=== PATIENT | male | born 1955 | race Caucasian/White ===

== ENCOUNTER 2017-01-15 14:54 | Emergency (ER) | payer OTHER ==
[2017-01-15 15:00] VITALS: TEMP 98.8
[2017-01-15] MEDS ORDERED: morphine CARPU-JECT 2 MG/1 ML DISP.SYRIN IVPUSH ONE (15:02)
[2017-01-15] MEDS ORDERED: SODIUM CHLORIDE 0.9% 500 ML INFUS.BAG IV ONE (15:02)
[2017-01-15] MEDS ORDERED: FAMOTIDINE 20 MG/50 ML IVPB 50 ML IVPB ONE ×2 (15:03→16:13)
[2017-01-15] MEDS ORDERED: ACETAMINOPHEN 1000 MG/100 ML VIAL (NON FORMULARY) IVPB ONE (15:04)
--- NOTE | 2017-01-15 15:04 | PDOC ---
ED Treatment Course - LABORATORY CBC & Chemistry Diagram: 01/15/17 15:15 01/15/17 15:15 Medical Decision Making - Medical Decision Making 01/15/17 15:05 Rapid Medical Triage: Pt comes with fever and flu like symptoms. No eating x days. He is dehydrated and weak. Last Advil was 6 hours ago and patient seems to be feverish at this time. Flu swab sent. CXR ordered- pt is a long time smoker. Pt has clear lung chavez, and abdomen is soft and nontender; no flank pain with percussion. His pain is in his joints and "all over" Pt will have EKG ordered, as he has high BP in the ER, and as he is 61 years old. Basic labs, IV, Normal Saline, Ofirmev (since he is vomiting), morphine for pain. *DC/Admit/Observation/Transfer Diagnosis at time of Disposition: Influenza - Discharge Dispostion Disposition: HOME Condition at time of disposition: Stable - Prescriptions Prescriptions: Oseltamivir Phosphate [Tamiflu -] 75 mg PO BID #10 capsule Oseltamivir Phosphate [Tamiflu -] 75 mg PO BID #10 capsule - Patient Instructions Printed Discharge Instructions: DI for Influenza -- Adult, DI for H1N1 Influenza -- Adult Additional Instructions: please parts picker the TAMIFLU prescription at [facility]
[2017-01-15] MEDS ORDERED: ACETAMINOPHEN INJECTION 100 ML IVPB ONE (16:13)
[2017-01-15] MEDS ORDERED: morphine CARPU-JECT 2 MG/1 ML DISP.SYRIN ONE (16:13)
--- NOTE | 2017-01-15 16:15 | PDOC ---
[id number] No Limitations - History of Present Illness Initial Comments: 01/15/17 16:34 The patient is a 61 year old male with no significant past medical history who presents to the emergency department with fever, chills, decreased appetite and body aches for the last 3 days. The patient states he has been unable to eat or drink for the last 3 days. The patient reports that he felt feverish however he did not take his temperature. He reports associated chills. The patient reports associated body aches and joint pain. He also reports associated nausea and vomiting that started today. He denies any sick contacts. He denies cough, chest pain, or SOB. He denies palpitations. He took Advil for his symptoms ~6 hours ago. <Nuha Conley - Last Filed: 01/15/17 16:55> <Amara Peterson - Last Filed: 01/15/17 19:25> <Jeimy Morfin - Last Filed: 01/16/17 07:51> - General Chief Complaint: Respiratory Stated Complaint: FEVER Time Seen by Provider: 01/15/17 14:56 Past History <Nuha Conley - Last Filed: 01/15/17 16:55> <Amara Peetrson - Last Filed: 01/15/17 19:25> - Past Medical History Other medical history: none - Psycho/Social/Smoking Cessation Hx Anxiety: No Suicidal Ideation: No Smoking History: Current every day smoker Have you smoked in the past 12 months: Yes Number of Cigarettes Smoked Daily: 20 Information on smoking cessation initiated: Yes 'Breaking Loose' booklet given: 01/15/17 Hx Alcohol Use: No Drug/Substance Use Hx: No Substance Use Type: None <Jeimy Morfin - Last Filed: 01/16/17 07:51> - Past Medical History Allergies/Adverse Reactions: Allergies Allergy/AdvReac Type Severity Reaction Status Date / Time No Known Allergies Allergy Verified 01/15/17 14:57 Home Medications: Ambulatory Orders Oseltamivir Phosphate [Tamiflu -] 75 mg PO BID #10 capsule 01/15/17 Oseltamivir Phosphate [Tamiflu -] 75 mg PO BID #10 capsule 01/15/17 Review of Systems - Review of Systems Able to Perform ROS?: Yes Comments:: 01/15/17 16:35 GENERAL/CONSTITUTIONAL: +Fever, +chills. No weakness. HEAD, EYES, EARS, NOSE AND THROAT: No change in vision. No ear pain or discharge. No sore throat. CARDIOVASCULAR: No chest pain or shortness of breath. RESPIRATORY: No cough, wheezing, or hemoptysis. GASTROINTESTINAL: +Nausea, +vomiting. No diarrhea or constipation. GENITOURINARY: No dysuria, frequency, or change in urination. MUSCULOSKELETAL: +Body aches, +joint pain. No muscle swelling or pain. No neck or back pain. SKIN: No rash NEUROLOGIC: No headache, vertigo, loss of consciousness, or change in strength/ sensation. ENDOCRINE: No increased thirst. No abnormal weight change. HEMATOLOGIC/LYMPHATIC: No anemia, easy bleeding, or history of blood clots. ALLERGIC/IMMUNOLOGIC: No hives or skin allergy. <Nuha Conley - Last Filed: 01/15/17 16:55> *Physical Exam - Vital Signs Last Vital Signs Temp Pulse Resp BP Pulse Ox 98.8 F 92 H 18 153/69 100 01/15/17 14:58 01/15/17 14:58 01/15/17 14:58 01/15/17 14:58 01/15/17 14:58 - Physical Exam Comments: 01/15/17 16:55 GENERAL: +Appears ill but non toxic. Awake, alert, and fully oriented, in no acute distress HEAD: No signs of trauma EYES: PERRLA, EOMI, sclera anicteric, conjunctiva clear ENT: Auricles normal inspection, hearing grossly normal, nares patent, oropharynx clear without exudates. Moist mucosa NECK: Normal ROM, supple, no lymphadenopathy, JVD, or masses LUNGS: Breath sounds equal, clear to auscultation bilaterally. No wheezes, and no crackles HEART: Regular rate and rhythm, normal S1 and S2, no murmurs, rubs or gallops ABDOMEN: Soft, nontender, normoactive bowel sounds. No guarding, no rebound. No masses EXTREMITIES: Normal range of motion, no edema. No clubbing or cyanosis. No cords, erythema, or tenderness NEUROLOGICAL: Cranial nerves II through XII grossly intact. Normal speech, normal gait SKIN: Warm, Dry, normal turgor, no rashes or lesions noted. <Nuha Conley - Last Filed: 01/15/17 16:55> - Vital Signs Last Vital Signs Temp Pulse Resp BP Pulse Ox 98.8 F 88 18 153/69 100 01/15/17 14:58 01/15/17 18:01 01/15/17 14:58 01/15/17 14:58 01/15/17 18:01 <Amara Peterson - Last Filed: 01/15/17 19:25> - Vital Signs Last Vital Signs Temp Pulse Resp BP Pulse Ox 98.8 F 92 H 18 153/69 100 01/15/17 14:58 01/15/17 14:58 01/15/17 14:58 01/15/17 14:58 01/15/17 14:58 <Jeimy Morfin - Last Filed: 01/16/17 07:51> Heart Score/ECG Review - ECG Impressions Comment:: EKG read 16:45- NSR 76 bpm, no acute ST/T changes <Jeimy Morfin - Last Filed: 01/16/17 07:51> ED Treatment Course - LABORATORY CBC & Chemistry Diagram: 01/15/17 15:15 01/15/17 15:15 - ADDITIONAL ORDERS Additional order review: 01/15/17 15:00 Influenza Types A,B Antigen (FADY) - Final Nasopharyngeal Swab - Final - Medications Given in the ED: ED Medications Discontinued Medications Generic Name Dose Route Start Last Admin Trade Name Daniel PRN Reason Stop Dose Admin Acetaminophen 1,000 mg 01/15/17 15:04 01/15/17 16:25 Ofirmev Injection - IVPB 01/15/17 15:05 1,000 mg ONCE ONE Administration Famotidine/Sodium Chloride 50 mls @ 100 mls/hr 01/15/17 15:03 01/15/17 16:24 Pepcid 20 Mg Premixed Ivpb - IVPB 01/15/17 15:32 100 mls/hr ONCE ONE Administration Morphine Sulfate 2 mg 01/15/17 15:02 01/15/17 16:24 Morphine Injection - IVPUSH 01/15/17 15:03 Not Given ONCE ONE Sodium Chloride 1,000 ml 01/15/17 15:02 01/15/17 16:24 Normal Saline - IV 01/15/17 15:03 1,000 ml ONCE ONE Administration <Nuha Conley - Last Filed: 01/15/17 16:55> - LABORATORY CBC & Chemistry Diagram: 01/15/17 15:15 01/15/17 15:15 - ADDITIONAL ORDERS Additional order review: Laboratory Results 01/15/17 01/15/17 16:57 15:15 Sodium 133 L Potassium 3.6 Chloride 96 L Carbon Dioxide 26 Anion Gap 11 BUN 12 Creatinine 0.9 Creat Clearance w eGFR > 60 Random Glucose 100 Calcium 8.5 Total Bilirubin 0.5 AST 31 ALT 22 Alkaline Phosphatase 75 Total Protein 7.3 Albumin 3.4 Urine Color Ltyellow Urine Appearance Clear Urine pH 8.0 Ur Specific [place] 1.012 Urine Protein 2+ H Urine Glucose (UA) Negative Urine Ketones 1+ H Urine Blood 1+ H Urine Nitrite Negative Urine Bilirubin Negative Urine Urobilinogen Negative Ur Leukocyte Esterase Negative 01/15/17 15:00 Influenza Types A,B Antigen (FADY) - Final Nasopharyngeal Swab - Final 01/15/17 15:15 RBC 5.70 H MCV 78.5 L MCHC 32.7 RDW 15.0 MPV 9.8 Neutrophils % 73.2 Lymphocytes % 15.9 Monocytes % 10.2 Eosinophils % 0.0 Basophils % 0.7 - Medications Given in the ED: ED Medications Discontinued Medications Generic Name Dose Route Start Last Admin Trade Name Lokeshq PRN Reason Stop Dose Admin Acetaminophen 1,000 mg 01/15/17 15:04 01/15/17 16:25 Ofirmev Injection - IVPB 01/15/17 15:05 1,000 mg ONCE ONE Administration Famotidine/Sodium Chloride 50 mls @ 100 mls/hr 01/15/17 15:03 01/15/17 16:24 Pepcid 20 Mg Premixed Ivpb - IVPB 01/15/17 15:32 100 mls/hr ONCE ONE Administration Morphine Sulfate 2 mg 01/15/17 15:02 01/15/17 16:24 Morphine Injection - IVPUSH 01/15/17 15:03 Not Given ONCE ONE Sodium Chloride 1,000 ml 01/15/17 15:02 01/15/17 16:24 Normal Saline - IV 01/15/17 15:03 1,000 ml ONCE ONE Administration <Amara Peterson - Last Filed: 01/15/17 19:25> - LABORATORY CBC & Chemistry Diagram: 01/15/17 15:15 01/15/17 15:15 - ADDITIONAL ORDERS Additional order review: 01/15/17 15:00 Influenza Types A,B Antigen (FADY) - Final Nasopharyngeal Swab - Final <Jeimy Morfin - Last Filed: 01/16/17 07:51> Medical Decision Making - Medical Decision Making 01/15/17 17:[address] Peterson. Tested positive for flu A. He has had symptoms for 3 days, tamiflu unlikely to help at this point. Currently receiving IV fluids, tylenol, pepcid. Reassess. Likely DC home. <Jeimy Morfin - Last Filed: 01/16/17 07:51> *DC/Admit/Observation/Transfer <Nuha Conley - Last Filed: 01/15/17 16:55> <Amara Peterson - Last Filed: 01/15/17 19:25> <Jeimy Morfin - Last Filed: 01/16/17 07:51> Diagnosis at time of Disposition: Influenza - Discharge Dispostion Disposition: HOME Condition at time of disposition: Stable - Prescriptions Prescriptions: Oseltamivir Phosphate [Tamiflu -] 75 mg PO BID #10 capsule Oseltamivir Phosphate [Tamiflu -] 75 mg PO BID #10 capsule - Patient Instructions Printed Discharge Instructions: DI for H1N1 Influenza -- Adult, DI for Influenza -- Adult Additional Instructions: please slate picker the TAMIFLU prescription at [facility]
[2017-01-15 16:31] LABS: BASOPHIL 0.7 % (0-2.0); MCH 25.6 pg (25.7-33.7); MCHC 32.7 g/dl (32.0-35.9); MEAN CELL VOLUME 78.5 fl (80-96); MEAN PLT VOLUME 9.8 fl (7.5-11.1); NEUTROPHILS 73.2 % (42.8-82.8); PLATELET COUNT 159 K/MM3 (134-434); WHITE BLOOD COUNT 6.1 K/mm3 (4.0-10.0)
[2017-01-15 17:03] LABS: ALBUMIN 3.4 g/dl (3.4-5.0); ALK PHOS 75 U/L (45-117); ANION GAP 11 (8-16); BILIRUBIN,TOTAL 0.5 mg/dL (0.2-1.0); CALCIUM 8.5 mg/dL (8.5-10.1); CO2 26 mmol/L (21-32); CREATININE 0.9 mg/dL (0.7-1.3); GLUCOSE,RANDOM 100 mg/dL (74-106); SGOT/AST 31 U/L (15-37); SGPT/ALT 22 U/L (12-78); TOT PROT 7.3 g/dl (6.4-8.2)
[2017-01-15 18:01] LABS: URINE APPEARANCE CLEAR; URINE BILIRUBIN NEGATIVE (NEGATIVE); URINE COLOR LTYELLOW; URINE GLUCOSE (UA) NEGATIVE (NEGATIVE); URINE KETONE 1+ (NEGATIVE); URINE LEUK ESTERASE NEGATIVE (NEGATIVE); URINE NITRITE NEGATIVE (NEGATIVE); URINE UROBILINOGEN NEGATIVE E.U./dl (0.2-1.0)
[2017-01-15 19:12] LABS: URINE BLOOD 1+ (NEGATIVE); URINE PROTEIN 2+ (NEGATIVE)
[2017-01-15 19:22] LABS: URINE RBC 18 /hpf (0-3); URINE WBC 2 /hpf (3-5)
[2017-01-15 20:05] VITALS: BP 155/65; PULSE 79
--- NOTE | 2017-01-16 13:49 | EKG ---
Test Reason : Blood Pressure : / mmHG Vent. Rate : 076 BPM Atrial Rate : 076 BPM P-R Int : 148 ms QRS Dur : 076 ms QT Int : 388 ms P-R-T Axes : 050 073 066 degrees QTc Int : 436 ms NORMAL SINUS RHYTHM POSSIBLE LEFT ATRIAL ENLARGEMENT BORDERLINE ECG WHEN COMPARED WITH ECG OF 04-SEP-2009 17:19, QUESTIONABLE CHANGE IN QRS AXIS Confirmed by SHASHI SANCHEZ, JACKY ([id number]) on 01/16/2017 1:49:18 PM Referred By: Confirmed By:JACKY DANIELLE MD
== END 2017-01-15 20:05 | disposition home or self-care (01) ==
LOC: JER 14:54
PROC: 3E033GC Introduction of Other Therapeutic Substance into Peripheral Vein, Percutaneous Approach (ICD-10-PCS; principal; 2017-01-15)
DX: J09.X2 Influenza due to identified novel influenza A virus with other respiratory manifestations (principal)
CPT/HCPCS: 36415; 71020-TC; 80053; 81003; 81015; 85025; 87804; 93005; 93010; 96365; 96375; 99283-25

== ENCOUNTER 2018-01-06 12:59 | Emergency (ER) | payer OTHER ==
[2018-01-06 13:13] VITALS: TEMP 97.8; BMI 22.9
[2018-01-06] MEDS ORDERED: RANITIDINE HCL 150 MG TABLET (FP) PO ONE (14:25)
[2018-01-06] MEDS ORDERED: ONDANSETRON *ODT* 4 MG TABLET SL ONE (14:25)
[2018-01-06] MEDS ORDERED: KETOROLAC TROMETHAMINE 60 MG/2 ML VIAL IM ONE (14:25)
--- NOTE | 2018-01-06 14:25 | PDOC ---
History of Present Illness - General History Source: Patient Exam Limitations: No Limitations - History of Present Illness Initial Comments: CHIEF COMPLAINT: 62 y/o afebrile male with no significant PMH (no PCP; patient receives no medical care) c/o fever, chills, n/v and body aches x 4 days. HISTORY OF PRESENT ILLNESS: The patient also admits to some runny nose and cough. He states he had the same symptoms last year (last year was diagnosed with the flu). He took some OTC cold an flu medicine yesterday. He denies CP, SOB, back pain, diarrhea, constipation, decrease in urinary output. Patient is able to drink liquids without vomiting. Vital signs on arrival are within normal limits. REVIEW OF SYSTEMS: GENERAL/CONSTITUTIONAL: Subjective fever/chills. +body aches. No weakness. No weight change. HEAD, EYES, EARS, NOSE AND THROAT: +runny nose. No change in vision. No ear pain or discharge. No sore throat. CARDIOVASCULAR: No chest pain or shortness of breath. RESPIRATORY: +cough. No wheezing or hemoptysis. GASTROINTESTINAL: +abdominal pain and vomiting. No diarrhea or constipation. GENITOURINARY: No dysuria, frequency, or change in urination. MUSCULOSKELETAL: No joint or muscle swelling or pain. No neck or back pain. SKIN: No rash or easy bruising. NEUROLOGIC: No headache, vertigo, loss of consciousness, or loss of sensation. PHYSICAL EXAM: GENERAL: The patient is awake, alert, and fully oriented, in no acute distress. Patient appears much older than stated age and is cachectic looking. He is non toxic appearing and ambulatory. HEAD: Normal with no signs of trauma. ENT: Pupils equal, round and reactive to light, extraocular movements intact, sclera anicteric, conjunctiva clear. Mucous membranes mildly dry. LUNGS: Clear to auscultation bilaterally. Normal excursion. No respiratory distress or use of accessory muscles. CV: RRR, S1/S2, no MRG. Cap refill < 2 sec. ABDOMEN: Soft, non-distended, scaphoid, TTP of epigastric region. No rebound, guarding or rigidity. EXTREMITIES: Normal range of motion, no edema. NEUROLOGICAL: Normal speech, normal gait. CN II-XII grossly intact. PSYCH: Normal mood, normal affect. SKIN: Warm, dry, normal turgor, no rashes or lesions noted. <Guillermina Fonseca - Last Filed: 01/06/18 16:25> <Randell Jimenez - Last Filed: 01/07/18 08:33> - General Chief Complaint: Cold Symptoms Stated Complaint: COLD SX Time Seen by Provider: 01/06/18 14:12 Past History - Past Medical History COPD: No - Suicide/Smoking/Psychosocial Hx Smoking History: Current every day smoker Have you smoked in the past 12 months: Yes Number of Cigarettes Smoked Daily: 20 Information on smoking cessation initiated: Yes 'Breaking Loose' booklet given: 01/06/18 Hx Alcohol Use: No Drug/Substance Use Hx: No Substance Use Type: None <Guillermina Fonseca - Last Filed: 01/06/18 16:25> <Randell Jimenez - Last Filed: 01/07/18 08:33> - Past Medical History Allergies/Adverse Reactions: Allergies Allergy/AdvReac Type Severity Reaction Status Date / Time No Known Allergies Allergy Verified 01/06/18 13:10 Home Medications: Ambulatory Orders Ondansetron [Zofran Odt -] 4 mg SL TID #10 od.tablet 01/06/18 Ranitidine HCl [Zantac] 150 mg PO BID #10 tablet 01/06/18 *Physical Exam - Vital Signs Last Vital Signs Temp Pulse Resp BP Pulse Ox 97.8 F 81 18 155/90 100 01/06/18 13:11 01/06/18 13:11 01/06/18 13:11 01/06/18 13:11 01/06/18 13:11 <Guillermina Fonseca - Last Filed: 01/06/18 16:25> - Vital Signs Last Vital Signs Temp Pulse Resp BP Pulse Ox 97.8 F 78 18 146/90 99 01/06/18 13:11 01/06/18 16:22 01/06/18 16:22 01/06/18 16:22 01/06/18 16:22 <Randell Jimenez - Last Filed: 01/07/18 08:33> ED Treatment Course - Medications Given in the ED: ED Medications Discontinued Medications Generic Name Dose Route Start Last Admin Trade Name Freq PRN Reason Stop Dose Admin Ketorolac Tromethamine 60 mg 01/06/18 14:25 01/06/18 14:46 Toradol Injection - IM 01/06/18 14:26 60 mg ONCE ONE Administration Ondansetron HCl 4 mg 01/06/18 14:25 01/06/18 14:45 Zofran Odt - SL 01/06/18 14:26 4 mg ONCE ONE Administration Ranitidine HCl 150 mg 01/06/18 14:25 01/06/18 14:47 Zantac - PO 01/06/18 14:26 150 mg ONCE ONE Administration <Randell Jimenez - Last Filed: 01/07/18 08:33> Medical Decision Making - Medical Decision Making A/P: 62 y/o male with signs and symptoms of the flu x 4 days. Pt is afebrile in the ER. Plan is as follows: 1. SL zofran 2. PO zantac 3. IM toradol 4. Reassess The patient has not vomited since entering the hospital and has drank an entire pitcher of water. his vital signs remain stable. The patient has been able to drink an entire pitcher of water but keeps asking for food in the IV. I have explained, through use of his cousin who is interpreting Romanian, that we do not have food to give him through the IV. Discussed likely diagnosis of flu but no need for test or Tamiflu as we are on day 4 of symptoms. Will send home with rx for zofran and zantac. Instructed him to take tylenol for fever/chills. instructed him to continue drinking only fluids until tomorrow morning (water, ensure, etc). Suggested he slowly reintroduce a bland diet tomorrow morning and if vomiting starts again to return to the hospital. The patient and his family is ok with this plan. The patient verbalizes understanding of all instructions, has no further questions and is awaiting discharge. <Guillermina Fonseca - Last Filed: 01/06/18 16:25> - Medical Decision Making 01/07/18 08:32 The patient was seen and evaluated in conjunction with JANIS Fonseca under my direct supervision, ancillary studies were reviewed. I agree with the plan as outlined by JANIS Fonseca . <Randell Jimenez - Last Filed: 01/07/18 08:33> *DC/Admit/Observation/Transfer <Guillermina Fonseca - Last Filed: 01/06/18 16:25> <Randell Jimenez - Last Filed: 01/07/18 08:33> Diagnosis at time of Disposition: Influenza - Discharge Dispostion Disposition: HOME Condition at time of disposition: Stable - Prescriptions Prescriptions: Ondansetron [Zofran Odt -] 4 mg SL TID #10 od.tablet Ranitidine HCl [Zantac] 150 mg PO BID #10 tablet - Patient Instructions Printed Discharge Instructions: [place] Diet, DI for Influenza -- Adult, DI for Vomiting -- Adult Additional Instructions: Discharge Instructions: -2 prescriptions have been sent to your pharmacy; please take as prescribed -Drink plenty of fluids (water, ensure, gatorade, etc) -Get plenty of rest -Tomorrow morning, start eating a bland diet of chicken broth, toast, etc. -Take 650mg of Tylenol every 4 hours for fever/chills -Follow up with Dr. Hancock within 2 weeks -Return to the ER immediately with any worsening or concerning symptoms
[2018-01-06] MEDS ORDERED: RANITIDINE HCL 150 MG TABLET (FP) ONE (14:40)
[2018-01-06] MEDS ORDERED: KETOROLAC TROMETHAMINE 60 MG/2 ML VIAL ONE (14:40)
[2018-01-06] MEDS ORDERED: ONDANSETRON *ODT* 4 MG TABLET ONE (14:40)
[2018-01-06 16:22] VITALS: BP 146/90; PULSE 78
== END 2018-01-06 16:21 | disposition home or self-care (01) ==
LOC: JERFT 12:59 → JER 12:59
PROC: 3E0233Z Introduction of Anti-inflammatory into Muscle, Percutaneous Approach (ICD-10-PCS; principal; 2018-01-06)
DX: J11.1 Influenza due to unidentified influenza virus with other respiratory manifestations (principal)
CPT/HCPCS: 96372; 99282-25

== ENCOUNTER 2018-12-12 15:08 | Emergency (ER) | payer OTHER ==
[2018-12-12 15:14] VITALS: BP 155/87; PULSE 84; TEMP 97.6; BMI 18.3
--- NOTE | 2018-12-12 15:16 | PDOC ---
Rapid Medical Evaluation Chief Complaint: Pain Time Seen by Provider: 12/12/18 15:12 Medical Evaluation: Allergies Allergy/AdvReac Type Severity Reaction Status Date / Time No Known Allergies Allergy Verified 12/12/18 15:14 Vital Signs Temp Pulse Resp BP Pulse Ox 97.6 F 84 18 155/87 100 12/12/18 15:09 12/12/18 15:09 12/12/18 15:09 12/12/18 15:09 12/12/18 15:09 12/12/18 15:14 Pt c/o: constipated x 1 week, vomiting now, c/o abd cramping Pt on brief exam: no abd distention, vss, bs + x 4 Pt ordered for: labs, urine, and kub Pt to proceed to the ED Discharge Disposition - Diagnosis Constipated - Referrals - Patient Instructions - Post Discharge Activity
[2018-12-12 15:45] LABS: BASO % 0.7 % (0-2.0); EOS % 2.1 % (0-4.5); HEMATOCRIT 47.1 % (35.4-49); HEMOGLOBIN 15.9 GM/dL (11.7-16.9); LYMPH % 39.3 % (8-40); MCH 27.1 pg (25.7-33.7); MCHC 33.7 g/dl (32.0-35.9); MEAN CELL VOLUME 80.6 fl (80-96); MEAN PLT VOLUME 9.8 fl (7.5-11.1); MONO % 7.4 % (3.8-10.2); NEUT % 50.5 % (42.8-82.8); PLATELET COUNT 271 K/MM3 (134-434); RBC 5.84 M/mm3 (4.00-5.60); RDW 14.4 % (11.9-15.9); WHITE BLOOD COUNT 13.3 K/mm3 (4.0-10.0)
[2018-12-12] MEDS ORDERED: FAMOTIDINE 20 MG/50 ML IVPB 20 MG/50 ML MG IVPB ONE ×2 (16:13→16:26)
[2018-12-12] MEDS ORDERED: ACETAMINOPHEN 1000 MG/100 ML VIAL (NON FORMULARY) IVPB ONE (16:13)
[2018-12-12] MEDS ORDERED: SODIUM CHLORIDE 1,000 ML IV STA (16:13)
[2018-12-12] MEDS ORDERED: ONDANSETRON 4 MG/2 ML VIAL IVPUSH ONE (16:15)
[2018-12-12 16:16] LABS: ALBUMIN 3.5 g/dl (3.4-5.0); ALK PHOS 99 U/L (45-117); ANION GAP 11 MMOL/L (8-16); BILIRUBIN,TOTAL 0.9 mg/dL (0.2-1); BLOOD UREA NITROGEN 20 mg/dL (7-18); CALCIUM 9.9 mg/dL (8.5-10.1); CHLORIDE 103 mmol/L (98-107); CO2 22 mmol/L (21-32); CREATININE 1.3 mg/dL (0.55-1.3); GLUCOSE,RANDOM 137 mg/dL (74-106); MAGNESIUM 2.1 mg/dL (1.8-2.4); POTASSIUM 4.3 mmol/L (3.5-5.1); SGOT/AST 22 U/L (15-37); SGPT/ALT 23 U/L (13-61); SODIUM 135 mmol/L (136-145); TOT PROT 8.2 g/dl (6.4-8.2)
[2018-12-12] MEDS ORDERED: ACETAMINOPHEN INJECTION 100 ML IVPB ONE (16:25)
[2018-12-12] MEDS ORDERED: ONDANSETRON 4 MG/2 ML VIAL ONE (16:25)
--- NOTE | 2018-12-12 16:32 | PDOC ---
History of Present Illness - General Chief Complaint: Pain Stated Complaint: VOMITING Time Seen by Provider: 12/12/18 15:12 History Source: Patient Exam Limitations: Language Barrier - History of Present Illness Initial Comments: 63 yo M who denies having any medical history presents to the ER after 5 days of nausea, vomiting, abdominal pain, and diarrhea. He reports his vomitus has appeared yellow and green in color but has not had any blood in it. He states he has vomited over 5 times a day every day for the past 3 days and it is getting worse. He also says that his diarrhea has been watery and non-bloody in appearance. He has experienced over 5 episodes of watery diarrhea every day as well. He says there is no blood in his diarrhea. He states his abdominal pain is 10/10 in intensity, located in the mid abdomen, julian-umbilical area, feels like a burning sensation and does not radiate anywhere. He has not been able to eat or drink for the past 2 days. He denies having recent fevers, chills, infections, chest pain, SOB, difficulty breathing, back pain, headache, neck pain, blurry vision, recent travel, dysuria , frequency, or urgency. Social Hx: Smokes 2 PPD. Denies drinking or other substance usage. Allergies: DEVENAKATLYN PCP: Noelle Phipps PSH: Eye surgery Past History - Past Medical History Allergies/Adverse Reactions: Allergies Allergy/AdvReac Type Severity Reaction Status Date / Time No Known Allergies Allergy Verified 12/12/18 15:14 Home Medications: Ambulatory Orders Ciprofloxacin HCl [Cipro] 500 mg PO BID #14 tablet 12/12/18 Metronidazole [Flagyl] 500 mg PO TID #21 capsule 12/12/18 COPD: No - Suicide/Smoking/Psychosocial Hx Smoking History: Never smoked Have you smoked in the past 12 months: Yes Number of Cigarettes Smoked Daily: 20 'Breaking Loose' booklet given: 01/06/18 Hx Alcohol Use: No Drug/Substance Use Hx: No Substance Use Type: None Review of Systems - Review of Systems Constitutional: Yes: Chills, Loss of Appetite. No: Diaphoresis, Fever HEENTM: Yes: Cataracts, Dental Problems. No: Blurred Vision, Nose Congestion, Mouth Pain Respiratory: No: Shortness of Breath, Wheezing, Productive cough Cardiac (ROS): Yes: Lightheadedness. No: Chest Pain, Irregular Heart Rate ABD/GI: Yes: Diarrhea, Nausea, Poor Appetite, Poor Fluid Intake, Vomiting, Abdominal cramping. No: Constipated Musculoskeletal: No: Back Pain, Joint Pain, Muscle Pain Integumentary: Yes: Pallor. No: Rash, Sweating Neurological: No: Headache, Numbness, Paresthesia, Weakness, Unsteady Gait, Ataxia Psychiatric: Yes: Change in Appetite. No: Anxiety, Depression, Frequent Crying , Stressors Endocrine: No: Excessive Sweating, Intolerance to Cold, Intolerance to Heat Hematologic/Lymphatic: No: Anemia, Blood Clots, Easy Bleeding *Physical Exam - Vital Signs Last Vital Signs Temp Pulse Resp BP Pulse Ox 97.6 F 84 18 155/87 100 12/12/18 15:12/12/18 15:12/12/18 15:12/12/18 15:12/12/18 15:09 - Physical Exam General Appearance: Yes: Nourished, Appropriately Dressed, Apparent Distress, Disheveled, Thin HEENT: positive: EOMI, CECILIO, Normal Voice. negative: Scleral Icterus (R), Scleral Icterus (L), Pharyngeal Erythema, Tonsillar Erythema, Nasal Congestion, Rhinorrhea, Thrush Neck: positive: Supple. negative: Rigid, Decreased range of motion, Lymphadenopathy (R), Lymphadenopathy (L) Respiratory/Chest: positive: Lungs Clear, Normal Breath Sounds. negative: Chest Tender, Respiratory Distress, Accessory Muscle Use, Crackles, Rales, Stridor, Wheezing Cardiovascular: positive: Regular Rhythm, Regular Rate, S1, S2. negative: Edema , JVD, Murmur Vascular Pulses: Dorsalis-Pedis (R): 2+, Doralis-Pedis (L): 2+ Gastrointestinal/Abdominal: positive: Soft, Increased Bowel Sounds. negative: Tender, Distended, Guarding, Rebound Rectal Exam: positive: deferred Lymphatic: negative: Adenopathy Musculoskeletal: positive: Normal Inspection. negative: CVA Tenderness, Decreased Range of Motion Extremity: positive: Normal Capillary Refill, Normal Inspection, Normal Range of Motion, Coldness Integumentary: positive: Dry, Warm, Pale. 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 intact, Fully Oriented, Alert, Normal Response, Motor Strength 5/5 Moderate Sedation - Procedure Monitoring Vital Signs: Procedure Monitoring Vital Signs Temperature 97.6 F 12/12/18 15:09 Pulse Rate 84 12/12/18 15:09 Respiratory Rate 18 12/12/18 15:09 Blood Pressure 155/87 12/12/18 15:09 O2 Sat by Pulse Oximetry (%) 100 12/12/18 15:09 ED Treatment Course - LABORATORY CBC & Chemistry Diagram: 12/12/18 15:32 12/12/18 15:32 - ADDITIONAL ORDERS Additional order review: Laboratory Results 12/12/18 15:32 Sodium 135 L Potassium 4.3 Chloride 103 Carbon Dioxide 22 Anion Gap 11 BUN 20 H Creatinine 1.3 Creat Clearance w eGFR 55.94 Random Glucose 137 H Calcium 9.9 Magnesium 2.1 Total Bilirubin 0.9 AST 22 ALT 23 Alkaline Phosphatase 99 Total Protein 8.2 Albumin 3.5 12/12/18 15:32 RBC 5.84 H MCV 80.6 MCHC 33.7 RDW 14.4 MPV 9.8 Neutrophils % 50.5 D Lymphocytes % 39.3 D Monocytes % 7.4 Eosinophils % 2.1 D Basophils % 0.7 - RADIOLOGY Radiology Studies Ordered: Category Date Time Status ABDOMEN & PELVIS CT W/O CONTR [CT] Stat CT Scan 12/12/18 16:16 Ordered Medical Decision Making - Medical Decision Making 63 yo M who denies having any medical history presents to the ER after 5 days of nausea, vomiting, abdominal pain, and diarrhea. - Vitals WNL. - green vomitus DDx IBNLT: Gastroenteritis, SBO, food poisoning, pancreatitis, cholecystitis, colitis, diverticulitis Plan: Labs, urine, EKG, CTAP, KUB, zofran, acetaminophen, pepcid, IV hydration, re-assess. WBC mildly elevated to 13.3 Lactic elevated to 3 CTAP shows probable colitis - Patient is well appearing, eating, drinking, and pain free. Will DC with cipro and flagyl. Repeat Lactic down to 1 *DC/Admit/Observation/Transfer Diagnosis at time of Disposition: Constipated, Colitis - Discharge Dispostion Disposition: HOME Condition at time of disposition: Improved Decision to Admit order: No - Prescriptions Prescriptions: Ciprofloxacin HCl [Cipro] 500 mg PO BID #14 tablet Metronidazole [Flagyl] 500 mg PO TID #21 capsule - Referrals Referrals: Noelle Phipps MD [Primary Care Provider] - - Patient Instructions Printed Discharge Instructions: DI for Colitis Additional Instructions: You came into the ER with abdominal pain, nausea, vomiting, and diarrhea. We did a Cat scan which showed you have colitis. We are sending antibiotics to your pharmacy for you to take for the next 7 days. Please make sure to go and pick them up. Come back to the ER if you get a fever, can't eat or drink, have severe abdominal pain, or have any other new or worsening concerns. Thank you for coming to the [facility] ER. We hope you feel better soon! Print Language: HAITIAN - Post Discharge Activity
[2018-12-12 17:13] LABS: LIPASE 223 U/L (73-393)
[2018-12-12] MEDS ORDERED: SODIUM CHLORIDE 0.9% 500 ML INFUS.BAG IV ONE ×2 (17:36→20:03)
--- NOTE | 2018-12-12 19:01 | PDOC ---
Attending Attestation - Resident Resident Name: Pete Beckett - ED Attending Attestation I have performed the following: I have examined & evaluated the patient, The case was reviewed & discussed with the resident, I agree w/resident's findings & plan, Exceptions are as noted - HPI HPI: 12/12/18 19:01 63 M with no known medical history presenting with abdominal pain, vomiting, and diarrhea. Pt reports 4-5 days of severe nausea and vomiting. States that he has vomited about 4 times, yellowish in color. Pt states that he has not kept down any food. Also endorses diarrhea associated with diffuse abdominal cramps. Denies BRPBR, denies melena. Denies F/C. Denies CP/SOB. No prior surgeries. - Physicial Exam PE: 12/12/18 19:14 GENERAL: Awake, alert, and fully oriented, in no acute distress. HEAD: No signs of trauma EYES: PERRLA, EOMI, sclera anicteric, conjunctiva clear ENT: Auricles normal inspection, hearing grossly normal, nares patent, oropharynx clear without exudates. Moist mucosa NECK: Nontender, no stepoffs, Normal ROM, supple, no lymphadenopathy, JVD, or masses LUNGS: Breath sounds equal, clear to auscultation bilaterally. No wheezes, and no crackles HEART: Regular rate and rhythm, normal S1 and S2, no murmurs, rubs or gallops ABDOMEN: + diffuse mild TTP, normoactive bowel sounds. No guarding, no rebound. No masses EXTREMITIES: Normal range of motion, no edema. No clubbing or cyanosis. No cords, erythema, or tenderness NEUROLOGICAL: Cranial nerves II through XII intact. 5/5 strength and sensation in all extremities, Normal speech, normal gait, normal cerebellar function SKIN: Warm, Dry, normal turgor, no rashes or lesions noted. - Medical Decision Making 12/12/18 19:14 63 M with diffuse abdominal pain, vomiting, and diarrhea. Possible gastroenteritis. Will obtain CT given tenderness on exam to r/o appy, colitis/ diverticulitis. - Labs - CTAP - IVF, zofran, pain control 12/12/18 20:04 Labs notable for WBC [address] shows possible colitis. Will empirically tx with cipro/flagyl Repeat lactate ordered Pt reassessed - now feels much better Will PO challenge 12/12/18 21:37 Repeat lactate 1.0 Pt reassessed - continues to feel well, able to tolerate PO Abdominal exam now benign at this time, no tenderness Pt is well appearing, with normal vitals. Clinically stable for DC at this time. I discussed the physical exam findings, ancillary test results and final diagnoses with the patient. I answered all of the patient's questions. The patient was satisfied with the care received and felt comfortable with the discharge plan and treatment plan. The patient agrees to follow up with the primary care physician within 24-72 hours.
[2018-12-12 20:25] LABS: URINE APPEARANCE CLEAR; URINE BILIRUBIN NEGATIVE (<2.0 mg/dL); URINE COLOR LTYELLOW; URINE GLUCOSE (UA) NEGATIVE (NEGATIVE); URINE KETONE NEGATIVE (NEGATIVE); URINE LEUK ESTERASE NEGATIVE (NEGATIVE); URINE NITRITE NEGATIVE (NEGATIVE); URINE PROTEIN 1+ (NEGATIVE); URINE UROBILINOGEN NEGATIVE mg/dL (0.2-1.0)
[2018-12-12 20:33] LABS: URINE MUCUS RARE
--- NOTE | 2018-12-13 08:41 | EKG ---
Test Reason : Blood Pressure : / mmHG Vent. Rate : 068 BPM Atrial Rate : 068 BPM P-R Int : 156 ms QRS Dur : 068 ms QT Int : 394 ms P-R-T Axes : 069 077 076 degrees QTc Int : 418 ms POOR DATA QUALITY, INTERPRETATION MAY BE ADVERSELY AFFECTED NORMAL SINUS RHYTHM NORMAL ECG WHEN COMPARED WITH ECG OF 15-JAN-2017 16:42, NO SIGNIFICANT CHANGE WAS FOUND Confirmed by SHASHI SANCHEZ, JACKY ([id number]) on 12/13/2018 8:40:55 AM Referred By: Confirmed By:JACKY DANIELLE MD
== END 2018-12-12 22:26 | disposition home or self-care (01) ==
LOC: JER 15:08
DX: K52.9 Noninfective gastroenteritis and colitis, unspecified (principal); K59.00 Constipation, unspecified; F17.210 Nicotine dependence, cigarettes, uncomplicated
CPT/HCPCS: 36415; 74018-TC-FY; 74177-TC; 80053; 81003; 81015; 83605; 83690; 83735; 84484; 85025; 93005; 93010; 99282-25; J0131; J7030

== ENCOUNTER 2019-05-15 19:26 | Emergency (ER) | payer OTHER ==
[2019-05-15 19:30] VITALS: BMI 21.2
[2019-05-15] MEDS ORDERED: SODIUM CHLORIDE 1,000 ML IV STA (19:30)
[2019-05-15] MEDS ORDERED: ONDANSETRON 4 MG/2 ML VIAL IVPUSH ONE (19:30)
--- NOTE | 2019-05-15 19:32 | PDOC ---
Rapid Medical Evaluation Time Seen by Provider: 05/15/19 19:29 Medical Evaluation: Allergies Allergy/AdvReac Type Severity Reaction Status Date / Time No Known Allergies Allergy Verified 12/12/18 15:14 Vital Signs Temp Pulse Resp BP Pulse Ox 97.4 F L 73 18 163/86 99 05/15/19 19:27 05/15/19 19:27 05/15/19 19:27 05/15/19 19:27 05/15/19 19:27 05/15/19 19:31 Patient complaints of: n/v x 3 days, no appetite, decreased bm and urine output Patient on brief exam: vss. no abd tenderness, mouth dry Patient ordered for: labs, ivf, zofran, and urine Patient to proceed to the ED Discharge Disposition - Diagnosis Nausea & vomiting - Referrals - Patient Instructions - Post Discharge Activity
[2019-05-15] MEDS ORDERED: ONDANSETRON 4 MG/2 ML VIAL ONE (20:02)
--- NOTE | 2019-05-15 20:18 | PDOC ---
History of Present Illness <Reyna Morgan - Last Filed: 05/15/19 23:57> - History of Present Illness Initial Comments: 05/15/19 20:18 63 yo M with no significant pmh who p/w vomitting. Patient reports 3-4 days of unremitting NBNB emesis worse with PO intake. Decreased PO intake. Also endorses absent BM x 4 days. Last BM this AM, scant. Normal flatulence. No other complaints. Similiar presentation with colitis (12/12/18), treated cipro/ flagyl and discharged from ED at [facility]. Patient denies MOLINA, vision change, palpitations, cough, wheezing, orthopena, PND , leg swelling/pain, F,C, CP, SOB, urinary complaints, hematuria, BPR, abdominal pain, diarrhea, lightheadedness, weakness, sensory changes. PMHx: as noted above Surgical: Denies abdominal surgeries ROS: as noted SHx: 1 ppd for 20+ years. Denies Etoh, IVDA Allergies: NKDA PMD: Noelle Phipps <Ephraim Rai - Last Filed: 05/16/19 00:00> - General Chief Complaint: Nausea/Vomiting Stated Complaint: VOMITING Time Seen by Provider: 05/15/19 19:29 Past History <Reyna Morgan - Last Filed: 05/15/19 23:57> - Past Medical History COPD: No - Suicide/Smoking/Psychosocial Hx Smoking History: Never smoked Have you smoked in the past 12 months: Yes Number of Cigarettes Smoked Daily: 20 'Breaking Loose' booklet given: 01/06/18 Hx Alcohol Use: No Drug/Substance Use Hx: No Substance Use Type: None <Ephraim Rai - Last Filed: 05/16/19 00:00> - Past Medical History Allergies/Adverse Reactions: Allergies Allergy/AdvReac Type Severity Reaction Status Date / Time No Known Allergies Allergy Verified 05/15/19 19:37 Home Medications: Ambulatory Orders Penicillin V Potassium [Pen Vee K -] 250 mg PO QID #40 tablet 05/15/19 Review of Systems - Review of Systems Comments:: 05/15/19 20:18 GENERAL/CONSTITUTIONAL: No fever or chills. No weakness. HEAD, EYES, EARS, NOSE AND THROAT: No change in vision. No ear pain or discharge. No sore throat. CARDIOVASCULAR: No chest pain or shortness of breath RESPIRATORY: No cough, wheezing, or hemoptysis. GASTROINTESTINAL: +nausea, vomiting,constipation. No diarrhea. GENITOURINARY: No dysuria, frequency, or change in urination. MUSCULOSKELETAL: No joint or muscle swelling or pain. No neck or back pain. SKIN: No rash NEUROLOGIC: No headache, vertigo, loss of consciousness, or change in strength/ sensation. ENDOCRINE: No increased thirst. No abnormal weight change HEMATOLOGIC/LYMPHATIC: No anemia, easy bleeding, or history of blood clots. ALLERGIC/IMMUNOLOGIC: No hives or skin allergy <Shon Raison - Last Filed: 05/16/19 00:00> *Physical Exam - Vital Signs Last Vital Signs Temp Pulse Resp BP Pulse Ox 97.9 F 73 18 132/75 99 05/15/19 19:35 05/15/19 19:35 05/15/19 19:35 05/15/19 19:35 05/15/19 19:35 <Reyna Morgan - Last Filed: 05/15/19 23:57> - Vital Signs Last Vital Signs Temp Pulse Resp BP Pulse Ox 97.4 F L 73 18 163/86 99 05/15/19 19:27 05/15/19 19:27 05/15/19 19:27 05/15/19 19:27 05/15/19 19:27 - Physical Exam Comments: 05/15/19 20:18 GENERAL: Awake, alert, and fully oriented, in no acute distress HEAD: No signs of trauma, normocephalic, atraumatic EYES: PERRLA, EOMI, sclera anicteric, conjunctiva clear ENT: Multiple dental carries bottom teeth, poor oral hygeine. Dry mucous membranes. Auricles normal inspection, hearing grossly normal, nares patent, oropharynx clear without exudates. NECK: Normal ROM, supple, no lymphadenopathy, JVD, or masses LUNGS: No distress, speaks full sentences, clear to auscultation bilaterally HEART: Regular rate and rhythm, normal S1 and S2, no murmurs, rubs or gallops, peripheral pulses normal and equal bilaterally. ABDOMEN: Soft, nontender, normoactive bowel sounds. No guarding, no rebound. No masses EXTREMITIES : Normal inspection, Normal range of motion, no edema. No clubbing or cyanosis. NEUROLOGICAL: Cranial nerves II through XII grossly intact. Normal speech, normal gait, no focal sensorimotor deficits SKIN: Warm, Dry, normal turgor, no rashes or lesions noted <Shon Raison - Last Filed: 05/16/19 00:00> ED Treatment Course - LABORATORY CBC & Chemistry Diagram: 05/15/19 20:28 05/15/19 20:28 - ADDITIONAL ORDERS Additional order review: Laboratory Results 05/15/19 05/15/19 21:30 20:28 Sodium 139 Potassium 4.4 Chloride 105 Carbon Dioxide 28 Anion Gap 6 L BUN 18.2 H Creatinine 1.3 Est GFR (CKD-EPI)AfAm 67.78 Est GFR (CKD-EPI)NonAf 58.48 Random Glucose 104 Calcium 9.5 Magnesium 2.0 Total Bilirubin 1.1 H AST 25 ALT 24 Alkaline Phosphatase 95 Total Protein 7.8 Albumin 3.7 Lipase 174 Urine Color Yellow Urine Appearance Clear Urine pH >= 9.0 H D Ur Specific [place] 1.012 Urine Protein Negative Urine Glucose (UA) Negative Urine Ketones Trace H Urine Blood Negative Urine Nitrite Negative Urine Bilirubin Negative Urine Urobilinogen 0.2 Ur Leukocyte Esterase Negative 05/15/19 20:28 RBC 5.60 MCV 82.4 MCHC 33.5 RDW 14.2 MPV 9.6 Neutrophils % 61.8 D Lymphocytes % 28.6 D Monocytes % 6.6 Eosinophils % 2.2 Basophils % 0.8 - RADIOLOGY Radiology Studies Ordered: Category Date Time Status ABDOMEN FLAT & UPRIGHT [RAD] Stat Radiology 05/15/19 21:15 Taken CHEST PA & LAT [RAD] Stat Radiology 05/15/19 21:19 Taken - Medications Given in the ED: ED Medications Discontinued Medications Generic Name Dose Route Start Last Admin Trade Name Freq PRN Reason Stop Dose Admin Sodium Chloride 1,000 mls @ 1,000 mls/hr 05/15/19 19:30 05/15/19 20:31 Normal Saline - IV 05/15/19 20:29 1,000 mls/hr ASDIR STA Administration Ondansetron HCl 4 mg 05/15/19 19:30 05/15/19 20:31 Zofran Injection IVPUSH 05/15/19 19:31 4 mg ONCE ONE Administration Sodium Chloride 500 ml 05/15/19 23:29 05/15/19 23:43 Normal Saline - IV 05/15/19 23:30 500 ml ONCE ONE Administration <Reyna Morgan - Last Filed: 05/15/19 23:57> - LABORATORY CBC & Chemistry Diagram: 05/15/19 20:28 05/15/19 20:28 <Ephraim Rai - Last Filed: 05/16/19 00:00> Medical Decision Making - Medical Decision Making 05/15/19 20:20 63 yo M with no significant pmh who p/w vomitting. Vitals wnl, AF, A&Ox3. Physical exam unremarkable. + dry mucous membranes. ACS/IA r/o. R/o SBO. Will consider pancreatitis, colitis, diverticulitis, gastritis/enteritis. Will assess for hypoglycemia, electrolyte abnml, metabolic and toxic derangements, acid-base disturbances, infection. Ed Course: 05/15/19 20:46 05/15/19 23:41 Abdomen rad on preliminary read with stool throughout CXR unremarkable CBC,CMP: Unremarkable Patient tolerating PO intake Pen-V for teeth decay and vomiting. Symptoms improved following SCARLET darling Advised to f/u PMD <FrediEphraim - Last Filed: 05/16/19 00:00> *DC/Admit/Observation/Transfer <Reyna Morgan - Last Filed: 05/15/19 23:57> - Discharge Dispostion Decision to Admit order: No <Ephraim Rai - Last Filed: 05/16/19 00:00> Diagnosis at time of Disposition: Need for dental care, Dental caries extending into pulp Nausea & vomiting Qualifiers: Vomiting type: unspecified Vomiting Intractability: intractable Qualified Code( s): R11.2 - Nausea with vomiting, unspecified - Discharge Dispostion Condition at time of disposition: Stable - Prescriptions Prescriptions: Penicillin V Potassium [Pen Vee K -] 250 mg PO QID #40 tablet - Referrals Referrals: Noelle Phipps MD [Primary Care Provider] - - Patient Instructions Printed Discharge Instructions: Soft Diet, DI for Tooth Decay, DI for Vomiting -- Adult Additional Instructions: Please return to the emergency department with any new or worsening symptoms or concerns. Please follow up with your primary care physician within 72 hours. - Post Discharge Activity
[2019-05-15 20:36] LABS: BASO % 0.8 % (0-2.0); EOS % 2.2 % (0-4.5); HEMATOCRIT 46.2 % (35.4-49); HEMOGLOBIN 15.5 GM/dL (11.7-16.9); LYMPH % 28.6 % (8-40); MCH 27.6 pg (25.7-33.7); MCHC 33.5 g/dl (32.0-35.9); MEAN CELL VOLUME 82.4 fl (80-96); MEAN PLT VOLUME 9.6 fl (7.5-11.1); MONO % 6.6 % (3.8-10.2); NEUT % 61.8 % (42.8-82.8); PLATELET COUNT 214 K/MM3 (134-434); RDW 14.2 % (11.9-15.9); WHITE BLOOD COUNT 11.4 K/mm3 (4.0-10.0)
[2019-05-15 23:11] LABS: PH,URINE >= 9.0 (5.0-8.0); URINE APPEARANCE CLEAR; URINE BILIRUBIN NEGATIVE (NEGATIVE); URINE COLOR YELLOW; URINE GLUCOSE (UA) NEGATIVE (NEGATIVE); URINE KETONE TRACE (NEGATIVE); URINE LEUK ESTERASE NEGATIVE (NEGATIVE); URINE NITRITE NEGATIVE (NEGATIVE); URINE PROTEIN NEGATIVE (NEGATIVE); URINE UROBILINOGEN 0.2 mg/dL (0.2-1.0)
[2019-05-15] MEDS ORDERED: SODIUM CHLORIDE 0.9% 500 ML INFUS.BAG IV ONE (23:29)
[2019-05-15 23:38] LABS: ALBUMIN 3.7 g/dl (3.4-5.0); BILIRUBIN,TOTAL 1.1 mg/dL (0.2-1); BLOOD UREA NITROGEN 18.2 mg/dL (7-18); CALCIUM 9.5 mg/dL (8.5-10.1); CREATININE 1.3 mg/dL (0.55-1.3); POTASSIUM 4.4 mmol/L (3.5-5.1); TOT PROT 7.8 g/dl (6.4-8.2)
--- NOTE | 2019-05-15 23:40 | PDOC ---
Documentation entered by Temo Feng SCRIBE, acting as scribe for Reyna Morgan MD. Reyna Morgan MD: This documentation has been prepared by the [employer] Elijah, SCRIBE, under my direction and personally reviewed by me in its entirety. I confirm that the documentation accurately reflects all work, treatment, procedures, and medical decision making performed by me. Attending Attestation - Resident Resident Name: FrediEphraim - ED Attending Attestation I have performed the following: I have examined & evaluated the patient, The case was reviewed & discussed with the resident, I agree w/resident's findings & plan - HPI HPI: 05/15/19 21:32 The patient is a 63 year old male with a significant past medical history of Colitis (Dec 2018, tx with cipro and flagyl) who presents to the ED NBNB vomiting 3 times a day for x3-4 days. The patient presents with vomiting associates symptoms of decreased bowel movements (scant bowel movement in the morning) and loss of appetite. Denies melena, hematochezia, abdominal pain, headache and cough Social History: Tobacco use Allergies: NKA, NKDA PCP: Noelle Phipps - Physicial Exam PE: 05/15/19 23:32 GENERAL: Awake, alert, and fully oriented, in no acute distress HEAD: No signs of trauma EYES: PERRLA, EOMI, sclera anicteric, conjunctiva clear ENT: +4 top teeth and half bottom teeth missing. Auricles normal inspection, hearing grossly normal, nares patent, oropharynx clear without exudates. Moist mucosa NECK: +Submental nodes. Normal ROM, supple, JVD, or masses LUNGS: Breath sounds equal, clear to auscultation bilaterally. No wheezes, and no crackles HEART: Regular rate and rhythm, normal S1 and S2, no murmurs, rubs or gallops ABDOMEN: Soft, nontender, normoactive bowel sounds. No guarding, no rebound. No masses EXTREMITIES: Normal range of motion, no edema. No clubbing or cyanosis. No cords, erythema, or tenderness NEUROLOGICAL: Cranial nerves II through XII grossly intact. Normal speech, SKIN: Warm, Dry, normal turgor, no rashes or lesions noted - Medical Decision Making 05/15/19 23:52 Pt is edentulous and he has rotten carious teeth in his mandible and only 4 upper teeth. Pt has many submental lymph nodes. He states that he has decreased appetite, which is likely due to his caries and cigarette smoking; approx 50 pack year history.
[2019-05-15] MEDS ORDERED: PENICILLIN V POTASSIUM 500 MG TABLET PO ONE (23:56)
[2019-05-16 00:40] VITALS: BP 151/77; PULSE 56; TEMP 98.4
== END 2019-05-16 00:40 | disposition home or self-care (01) ==
LOC: JER 19:26
PROC: 3E033GC Introduction of Other Therapeutic Substance into Peripheral Vein, Percutaneous Approach (ICD-10-PCS; principal; 2019-05-15)
DX: R11.2 Nausea with vomiting, unspecified (principal); K59.00 Constipation, unspecified; K02.9 Dental caries, unspecified; F17.210 Nicotine dependence, cigarettes, uncomplicated
CPT/HCPCS: 36415; 71046-TC-FY; 74019-TC-FY; 80053; 81003; 83690; 83735; 85025; 87086; 96374; 99284-25; J7030

== ENCOUNTER 2019-10-17 14:12 | Emergency (ER) | payer OTHER ==
[2019-10-17 14:17] VITALS: BMI 20.9
--- NOTE | 2019-10-17 14:57 | PDOC ---
History of Present Illness - General History Source: Patient Exam Limitations: No Limitations - History of Present Illness Initial Comments: 10/17/19 14:49 64 yo M w/ a h/o Heartburn, HLD, ex 1PPD smoker (stopped smoking 5 days ago) comes in c/o loss of appetite for the past 1 week, with nausea, generalized weakness. Also c/o a burning to the middle of chest for the past 4 days which feels like his heartburn, no burning now. (+)SOB with ambulation, which is new for the past 2 weeks. He stopped smoking becuase he thought the smoking was causing his symptoms but symptoms have not gone away. No fever/chills, no vomiting/diarrhea, no diaphoresis, no night sweats, no cough , no cold symptoms. No h/o heart disease, no known h/o cancer. No h/o PE/DVT, no recent surgery, no h/o malignancy, no recent prolonged period of immobilization, no recent trauma/fall, no calf pain, no hemoptysis. Pt does not take medication for his high cholesterol. PMD: Dr. Noelle Phipps 10/17/19 15:02 <Michela Vaughan - Last Filed: 10/17/19 15:58> <Lali Cisneros - Last Filed: 10/17/19 17:09> - General Chief Complaint: Loss of Appetite Stated Complaint: Loss of Appetite/ weakness Time Seen by Provider: 10/17/19 14:47 Past History - Past Medical History COPD: No - Psycho Social/Smoking Cessation Hx Smoking History: Current every day smoker Have you smoked in the past 12 months: Yes Number of Cigarettes Smoked Daily: 25 Information on smoking cessation initiated: No 'Breaking Loose' booklet given: 01/06/18 Hx Alcohol Use: No Drug/Substance Use Hx: No Substance Use Type: None <Michela Vaughan - Last Filed: 10/17/19 15:58> <Lali Cisneros - Last Filed: 10/17/19 17:09> - Past Medical History Allergies/Adverse Reactions: Allergies Allergy/AdvReac Type Severity Reaction Status Date / Time No Known Allergies Allergy Verified 10/17/19 14:17 Home Medications: Ambulatory Orders Penicillin V Potassium [Pen Vee K -] 250 mg PO QID #40 tablet 05/15/19 Review of Systems - Review of Systems Able to Perform ROS?: Yes Constitutional: No: Chills, Fever, Malaise, Night Sweats HEENTM: No: Eye Pain, Recent change in vision, Throat Pain Respiratory: Yes: Shortness of Breath. No: Cough Cardiac (ROS): No: Chest Pain, Palpitations, Chest Tightness ABD/GI: Yes: Nausea. No: Diarrhea, Vomiting, Abdominal cramping : No: Dysuria, Hematuria Musculoskeletal: No: Back Pain Integumentary: No: Rash Neurological: No: Headache, Numbness, Dizziness Psychiatric: Yes: Change in Appetite Endocrine: No: Unexplained Weight Loss <Michela Vaughan - Last Filed: 10/17/19 15:58> *Physical Exam - Vital Signs Last Vital Signs Temp Pulse Resp BP Pulse Ox 98 F 78 18 166/88 98 10/17/19 14:13 10/17/19 14:13 10/17/19 14:13 10/17/19 14:13 10/17/19 14:13 - Physical Exam General Appearance: Yes: Nourished. No: Apparent Distress HEENT: positive: CECILIO, Normal ENT Inspection, Normal Voice, Other (R sided gumball size non tender mobile mass overlying mandibular angle). negative: Pale Conjunctivae, Scleral Icterus (R), Scleral Icterus (L) Neck: positive: Supple. negative: Decreased range of motion, Tender midline Respiratory/Chest: positive: Lungs Clear, Normal Breath Sounds. negative: Respiratory Distress, Accessory Muscle Use Cardiovascular: positive: Regular Rhythm, Regular Rate Gastrointestinal/Abdominal: positive: Normal Bowel Sounds, Soft. negative: Tender Musculoskeletal: positive: Normal Inspection. negative: CVA Tenderness, Decreased Range of Motion Extremity: positive: Normal Capillary Refill, Normal Inspection, Normal Range of Motion. negative: Tender, Pedal Edema Integumentary: positive: Normal Color, Dry. negative: Jaundice, Rash Neurologic: positive: Fully Oriented, Alert, Normal Mood/Affect <Michela Vaughan - Last Filed: 10/17/19 15:58> - Vital Signs Last Vital Signs Temp Pulse Resp BP Pulse Ox 98 F 78 18 166/88 98 10/17/19 14:13 10/17/19 14:13 10/17/19 14:13 10/17/19 14:13 10/17/19 14:13 <Lali Cisneros - Last Filed: 10/17/19 17:09> Heart Score/ECG Review #1 ECG reviewed & interpreted by me at: 15:10 General ECG Interpretation: Sinus Rhythm, Normal Rate, Normal Intervals Compared to previous ECG there are: No significant change 10/17/19 15:52 EKG normal sinus rhythm 71 bpm, no interval abnormalities, narrow QRS, ST and T wave segments and morphology normal. Nonspecific T wave abnormalities <Lali Cisneros - Last Filed: 10/17/19 17:09> ED Treatment Course - LABORATORY CBC & Chemistry Diagram: 10/17/19 15:45 10/17/19 15:45 <Michela Vaughan - Last Filed: 10/17/19 15:58> - LABORATORY CBC & Chemistry Diagram: 10/17/19 15:45 10/17/19 15:45 <Lali Cisneros - Last Filed: 10/17/19 17:09> Medical Decision Making - Medical Decision Making 10/17/19 15:06 64 yo M w/ HLD, smoker, p/w "heartburn" with nausea, loss of appetite, difficulty swallowing foods and SOB with exertion. WIll do an EKG, CXR, labs including cardiac enzymes and will likely admit. R/O malignancy vs ACS. 10/17/19 15:58 End of shift. care of patient signed over to YUSRA Rios who will assume care of patient at this time. Follow up labs, xray and decide on dispo plan. <Michela Vaughan - Last Filed: 10/17/19 15:58> - Medical Decision Making 10/17/19 15:51 The patient was seen and evaluated in conjunction with midlevel provider under my direct supervision, ancillary studies were reviewed. I agree with the plan as outlined with JANIS Vaughan. HPI, workup/dispo as outlined. VS reviewed, wnl. labs and CXR. labs wnl. trop neg, EKG documented, unremarkable. cxr 10/17/19 17:08 <Llai Cisneros - Last Filed: 10/17/19 17:09> Discharge - Discharge Information Problems reviewed: Yes <Michela Vaughan - Last Filed: 10/17/19 15:58> <Lali Cisneros - Last Filed: 10/17/19 17:09> - Discharge Information Clinical Impression/Diagnosis: Loss of appetite - Follow up/Referral Referrals: Sharath Phipps [Primary Care Provider] - - Patient Discharge Instructions - Post Discharge Activity
[2019-10-17 15:54] LABS: BASO % 0.9 % (0-2.0); EOS % 3.8 % (0-4.5); HEMATOCRIT 48.1 % (35.4-49); HEMOGLOBIN 15.7 GM/dL (11.7-16.9); LYMPH % 35.3 % (8-40); MCH 26.5 pg (25.7-33.7); MCHC 32.6 g/dl (32.0-35.9); MEAN CELL VOLUME 81.4 fl (80-96); MEAN PLT VOLUME 9.6 fl (7.5-11.1); MONO % 7.3 % (3.8-10.2); NEUT % 52.7 % (42.8-82.8); PLATELET COUNT 275 K/MM3 (134-434); RBC 5.91 M/mm3 (4.00-5.60); RDW 14.5 % (11.9-15.9); WHITE BLOOD COUNT 8.4 K/mm3 (4.0-10.0)
[2019-10-17 16:11] LABS: ALBUMIN 3.6 g/dl (3.4-5.0); BILIRUBIN,TOTAL 0.4 mg/dL (0.2-1); BLOOD UREA NITROGEN 22.4 mg/dL (7-18); CALCIUM 9.8 mg/dL (8.5-10.1); CREATININE 1.2 mg/dL (0.55-1.3); MAGNESIUM 2.3 mg/dL (1.8-2.4); N-TERMINAL BNP 24.5 pg/ml (5-125); PHOSPHOROUS 2.8 mg/dL (2.5-4.9); POTASSIUM 4.9 mmol/L (3.5-5.1); TOT PROT 8.1 g/dl (6.4-8.2)
--- NOTE | 2019-10-17 16:53 | PDOC ---
*Physical Exam - Vital Signs Last Vital Signs Temp Pulse Resp BP Pulse Ox 98 F 78 18 166/88 98 10/17/19 14:13 10/17/19 14:13 10/17/19 14:13 10/17/19 14:13 10/17/19 14:13 - Physical Exam General Appearance: Yes: Appropriately Dressed. No: Apparent Distress HEENT: positive: Normal ENT Inspection Neck: positive: Trachea midline Respiratory/Chest: positive: Lungs Clear, Normal Breath Sounds. negative: Respiratory Distress, Accessory Muscle Use Cardiovascular: positive: Regular Rhythm, Regular Rate Gastrointestinal/Abdominal: positive: Normal Bowel Sounds, Soft. negative: Tender Heart Score/ECG Review - History History: Slightly suspicious - Electrocardiogram EKG: Non specific repolarization disturbance - Age Age: 45-65 - Risk Factors Risk Factors Heart Score: Yes Hx Hypertension, Yes Smoking History Based on the list above the patient has:: 1-2 risk factors - Troponin Troponin: </= normal limit - Score Heart Score - Total: 3 ED Treatment Course - LABORATORY CBC & Chemistry Diagram: 10/17/19 15:45 10/17/19 15:45 - ADDITIONAL ORDERS Additional order review: Laboratory Results 10/17/19 10/17/19 15:45 15:45 Sodium 138 Potassium 4.9 Chloride 104 Carbon Dioxide 28 Anion Gap 6 L BUN 22.4 H Creatinine 1.2 Est GFR (CKD-EPI)AfAm 74.14 Est GFR (CKD-EPI)NonAf 63.97 Random Glucose 84 Calcium 9.8 Phosphorus 2.8 Magnesium 2.3 Total Bilirubin 0.4 AST 16 ALT 17 Alkaline Phosphatase 89 Creatine Kinase 59 Troponin I < 0.02 B-Natriuretic Peptide 24.5 Total Protein 8.1 Albumin 3.6 Lipase 190 10/17/19 15:45 RBC 5.91 H MCV 81.4 MCHC 32.6 RDW 14.5 MPV 9.6 Neutrophils % 52.7 Lymphocytes % 35.3 D Monocytes % 7.3 Eosinophils % 3.8 Basophils % 0.9 ED Progress Note - Progress Note Progress Note: 10/17/19 16:52 Received signout from JANIS Vaughan. Briefly this is a 64-year-old male history of hyperlipidemia, 1 pack/day smoker who stopped smoking 5 days ago presents emergency department with burning sensation in his chest with nausea and loss of appetite. Patient also difficulty swallowing foods and shortness of breath on exertion dyspnea on exertion. EKG was sinus rhythm rate of 71. No ischemic changes present. CBC is unremarkable Chemistry are unremarkable with a normal cardiac profile. BNP-24.5. Chest x-ray is pending 10/17/19 16:53 10/17/19 18:12 Medical Decision Making - Medical Decision Making 10/17/19 18:12 Chest x-ray as read by me: Angle sharp. Cardiac silhouette is within normal limits. Lung chavez are clear without infiltrations or consolidations noted. No nodule seen. No significant change from study performed 05/15/19. P.o. trial-if tolerates will discharge home follow-up with his primary doctor. 10/17/19 18:13 10/17/19 18:58 Patient tolerated p.o.'s without difficulty. Patient reports he feels better. I will discharge the patient home to follow-up with his primary doctor for continued evaluation. I discussed the physical exam findings, ancillary test results and final diagnoses with the patient. I answered all of the patient's questions. The patient was satisfied with the care received and felt comfortable with the discharge plan and treatment plan. The patient will call their primary care physician within 24 hours to arrange follow-up and will return to the Emergency Department with any new, persistent or worsening symptoms. Discharge - Discharge Information Problems reviewed: Yes Clinical Impression/Diagnosis: Loss of appetite Condition: Fair Disposition: HOME - Admission No - Follow up/Referral Referrals: Sharath Phipps [Primary Care Provider] - - Patient Discharge Instructions Additional Instructions: Eat a bland diet with bananas, rice, applesauce and toast. As you are able to tolerate these and feel hungry you can add food with more flavor. Your emergency department visit is incomplete until you see your regular doctor. Schedule an appointment within the next 7 days for reevaluation. Return to the emergency department immediately should your symptoms worsen. Thank you very much for choosing us to provide your emergent health care needs. - Post Discharge Activity
[2019-10-17 19:24] VITALS: BP 160/85; PULSE 69; TEMP 98.3
--- NOTE | 2019-10-18 17:04 | EKG ---
Test Reason : Blood Pressure : / mmHG Vent. Rate : 071 BPM Atrial Rate : 071 BPM P-R Int : 150 ms QRS Dur : 072 ms QT Int : 382 ms P-R-T Axes : 061 063 072 degrees QTc Int : 415 ms NORMAL SINUS RHYTHM NORMAL ECG WHEN COMPARED WITH ECG OF 12-DEC-2018 16:53, NO SIGNIFICANT CHANGE WAS FOUND Confirmed by MENA DUEÑAS MD ([id number]) on 10/18/2019 5:03:51 PM Referred By: Confirmed By:MENA DUEÑAS MD
== END 2019-10-17 19:20 | disposition home or self-care (01) ==
LOC: JER 14:12
DX: R63.0 Anorexia (principal); E78.5 Hyperlipidemia, unspecified; Z87.891 Personal history of nicotine dependence
CPT/HCPCS: 36415; 71046-TC-FY; 80053; 82550; 83690; 83735; 83880; 84100; 84484; 85025; 93005; 93010; 99282-25

== ENCOUNTER 2019-12-16 13:37 | Emergency (ER) | payer OTHER ==
[2019-12-16 13:47] VITALS: BMI 20.2
--- NOTE | 2019-12-16 14:42 | PDOC ---
History of Present Illness - General Chief Complaint: Pain Stated Complaint: VOMITING Time Seen by Provider: 12/16/19 14:36 - History of Present Illness Initial Comments: 12/16/19 14:42 CHIEF COMPLAINT: abdominal pain HISTORY OF PRESENT ILLNESS: 64 yo M with hx of heartburn, HLD presents to ED with abdominal pain x 2 days. Patient reports at least 15 episodes vomiting daily and has not been able to tolerate any po. Last BM was two days ago. Patient erports taking orange pills that give him diarrhea. Denies any fevers. PCP: Noelle Phipps No recent travel or sick contacts. PAST MEDICAL HISTORY: heartburn, HLD FAMILY HISTORY: Denies SOCIAL HISTORY: 2 packs daily SURGICAL HISTORY: Denies ALLERGIES: No known drug allergies REVIEW OF SYSTEMS General/Constitutional: Denies fever or chills. Denies weakness, weight change. HEENT: Denies change in vision. Denies ear pain or discharge. Denies sore throat. Cardiovascular: Denies chest pain or shortness of breath. Respiratory: Denies cough, wheezing, or hemoptysis. Gastrointestinal: Persistent vomiting x 2 days. Diarrhea with meds. Denies rectal bleeding. Genitourinary: Denies dysuria, frequency, or change in urination. Musculoskeletal: Denies joint or muscle swelling or pain. Denies neck or back pain. Skin and breasts: Denies rash or easy bruising. Neurologic: Denies headache, vertigo, loss of consciousness, or loss of sensation. Psychiatric: Denies depression or anxiety. PHYSICAL EXAM General Appearance: Well-appearing, appropriately dressed. No apparent distress. HEENT: EOMI, PERRLA, normal ENT inspection, normal voice, TMs normal, pharynx normal. No conjunctival pallor. No photophobia, scleral icterus. Neck: Supple. Trachea midline. No tenderness, rigidity, carotid bruit, stridor , lymphadenopathy, or thyromegaly. Respiratory/Chest: Lungs CTAB. No shortness of breath, chest tenderness, respiratory distress, accessory muscle use. No crackles, rales, rhonchi, stridor , wheezing, dullness Cardiovascular: RRR. S1, S2. No JVD, murmur, bradycardia, tachycardia. Vascular Pulses: Dorsalis-Pedis (R): 2+, Dorsalis-Pedis (L): 2+ Gastrointestinal/Abdominal: Diffusely tender abdomen with guarding. No organomegaly, pulsatile mass, guarding, hernia, hepatomegaly, splenomegaly. Lymphatic: No adenopathy, tenderness. Musculoskeletal/Extremities: Normal inspection. FROM of all extremities, normal capillary refill. Pelvis Stable. No CVA tenderness. No tenderness to extremities, pedal edema, swelling, erythema or deformity. Integumentary: Appropriate color, dry, warm. No cyanosis, erythema, jaundice or rash Neurologic: personal lines appraiser II-XII intact. Fully oriented, alert. Appropriate mood/affect. Motor strength 5/5. No appreciable EOM palsy, facial droop or sensory deficit. 12/16/19 14:42 12/16/19 16:05 Past History - Past Medical History Allergies/Adverse Reactions: Allergies Allergy/AdvReac Type Severity Reaction Status Date / Time No Known Allergies Allergy Verified 12/16/19 13:47 Home Medications: Ambulatory Orders Penicillin V Potassium [Pen Vee K -] 250 mg PO QID #40 tablet 05/15/19 COPD: No HTN: Yes - Psycho Social/Smoking Cessation Hx Smoking History: Never smoked Have you smoked in the past 12 months: Yes Number of Cigarettes Smoked Daily: 25 'Breaking Loose' booklet given: 01/06/18 Hx Alcohol Use: No Drug/Substance Use Hx: No Substance Use Type: None *Physical Exam - Vital Signs Last Vital Signs Temp Pulse Resp BP Pulse Ox 98 F 80 18 155/89 98 12/16/19 13:44 12/16/19 13:44 12/16/19 13:44 12/16/19 13:44 12/16/19 13:44 ED Treatment Course - LABORATORY CBC & Chemistry Diagram: 12/16/19 15:06 12/16/19 15:06 Medical Decision Making - Medical Decision Making 12/16/19 15:56 64 yo M with hx of heartburn, HLD presents to ED with abdominal pain x 2 days. Concern for SBO vs mesenteric ischemia vs intraabdominal infection/performation. -labs -XR -CTAP 12/16/19 Case discussed in detail with oncoming emergency provider Wicho including history, physical exam and ancillary studies. In brief, this patient is being seen in the ED for a chief complaint of: abdominal pain, vomiting x 2 days I have completed the initial assessment interview note and have ordered the following labs: labs, CTAP I have reviewed the following results: CBC Pending results: CMP Please call the PCP: Noelle Phipps Plan for disposition as follows: pending Oncoming NPA Wicho has assumed care for the patient and will complete the evaluation and treatment. Discharge - Follow up/Referral Referrals: Noelle Phipps MD [Primary Care Provider] - - Patient Discharge Instructions - Post Discharge Activity
--- NOTE | 2019-12-16 14:47 | PDOC ---
*Physical Exam - Vital Signs Last Vital Signs Temp Pulse Resp BP Pulse Ox 98 F 80 18 155/89 98 12/16/19 13:44 12/16/19 13:44 12/16/19 13:44 12/16/19 13:44 12/16/19 13:44 - Physical Exam 12/16/19 14:46 The patient was examined by [YUSRA elizabeth] under my direct supervision. I personally evaluated the patient. I concur with the above findings and the plan of care. ED Treatment Course - LABORATORY CBC & Chemistry Diagram: 12/16/19 15:06 12/16/19 15:06 Discharge - Follow up/Referral Referrals: Noelle Phipps MD [Primary Care Provider] - - Patient Discharge Instructions - Post Discharge Activity
[2019-12-16] MEDS ORDERED: ONDANSETRON 4 MG/2 ML VIAL IVPUSH ONE (14:50)
[2019-12-16] MEDS ORDERED: ONDANSETRON 4 MG/2 ML VIAL ONE (14:55)
[2019-12-16] MEDS ORDERED: ACETAMINOPHEN 1000 MG/100 ML VIAL (NON FORMULARY) IVPB ONE (15:02)
[2019-12-16 15:23] LABS: BASO % 1.1 % (0-2.0); EOS % 1.7 % (0-4.5); HEMATOCRIT 46.9 % (35.4-49); HEMOGLOBIN 15.3 GM/dL (11.7-16.9); LYMPH % 28.8 % (8-40); MCH 26.5 pg (25.7-33.7); MCHC 32.6 g/dl (32.0-35.9); MEAN CELL VOLUME 81.1 fl (80-96); MEAN PLT VOLUME 9.7 fl (7.5-11.1); NEUT % 61.4 % (42.8-82.8); PLATELET COUNT 291 K/MM3 (134-434); RBC 5.79 M/mm3 (4.00-5.60); RDW 16.2 % (11.9-15.9); WHITE BLOOD COUNT 11.3 K/mm3 (4.0-10.0)
[2019-12-16 15:44] LABS: INR 1.11 (0.83-1.09); PROTHROMBIN TIME (PATIENT) 13.1 SEC (9.7-13.0)
[2019-12-16 15:47] LABS: ACTIVATED PTT 32.3 SECONDS (25.2-36.5)
[2019-12-16 16:44] LABS: ALBUMIN 3.8 g/dl (3.4-5.0); BILIRUBIN,TOTAL 0.9 mg/dL (0.2-1); BLOOD UREA NITROGEN 16.9 mg/dL (7-18); CALCIUM 10.3 mg/dL (8.5-10.1); CREATININE 1.2 mg/dL (0.55-1.3); POTASSIUM 4.5 mmol/L (3.5-5.1); TOT PROT 8.5 g/dl (6.4-8.2)
[2019-12-16] MEDS ORDERED: SODIUM PHOSPHATE/NA BIPHOS 133 ML ENEMA PR ONE (17:57)
--- NOTE | 2019-12-16 18:11 | PDOC ---
*Physical Exam - Vital Signs Last Vital Signs Temp Pulse Resp BP Pulse Ox 98 F 80 18 155/89 98 12/16/19 13:44 12/16/19 13:44 12/16/19 13:44 12/16/19 13:44 12/16/19 13:44 ED Treatment Course - LABORATORY CBC & Chemistry Diagram: 12/16/19 15:06 12/16/19 15:06 - ADDITIONAL ORDERS Additional order review: Laboratory Results 12/16/19 12/16/19 12/16/19 15:06 15:06 15:06 PT with INR 13.10 H INR 1.11 H PTT (Actin FS) 32.3 Sodium 138 Potassium 4.5 Chloride 106 Carbon Dioxide 24 Anion Gap 8 BUN 16.9 Creatinine 1.2 Est GFR (CKD-EPI)AfAm 74.14 Est GFR (CKD-EPI)NonAf 63.97 Random Glucose 97 Calcium 10.3 H Total Bilirubin 0.9 AST 31 ALT 21 Alkaline Phosphatase 100 Total Protein 8.5 H Albumin 3.8 Lipase 132 Blood Type A POSITIVE Antibody Screen Negative 12/16/19 15:06 RBC 5.79 H MCV 81.1 MCHC 32.6 RDW 16.2 H MPV 9.7 Neutrophils % 61.4 Lymphocytes % 28.8 Monocytes % 7.0 Eosinophils % 1.7 Basophils % 1.1 - Medications Given in the ED: ED Medications Discontinued Medications Generic Name Dose Route Start Last Admin Trade Name Lokeshq PRN Reason Stop Dose Admin Acetaminophen 1,000 mg 12/16/19 15:02 12/16/19 17:45 Ofirmev Injection - IVPB 12/16/19 15:03 1,000 mg ONCE ONE Administration Ondansetron HCl 4 mg 12/16/19 14:50 12/16/19 15:12 Zofran Injection IVPUSH 12/16/19 14:51 4 mg ONCE ONE Administration Medical Decision Making - Medical Decision Making Patient signed out to me by YUSRA Cason Abd xray shows large amount of stool, no SBO CT A/P shows no SBO or other acute pathology Pain likely from constipation Will give enema, but patient states he prefers to take enema at home Stable for dc 12/16/19 18:08 Discharge - Discharge Information Problems reviewed: Yes Clinical Impression/Diagnosis: Constipation Qualifiers: Constipation type: unspecified constipation type Qualified Code(s): K59.00 - Constipation, unspecified Condition: Stable Disposition: HOME - Admission No - Additional Discharge Information Prescriptions: Magnesium Citrate [Citroma -] 195 ml PO ONCE #1 bottle Prescription Drug Monitoring Program (I-STOP) results: I-STOP not reviewed - Follow up/Referral Referrals: Noelle Phipps MD [Primary Care Provider] - 2 Days - Patient Discharge Instructions Patient Printed Discharge Instructions: DI for Constipation Additional Instructions: Thank you for choosing [facility]. It was a pleasure taking care of you. Take enema for constipation If still with no bowel movement, you can also use the Magnesium citrate Please follow-up with your doctor in 2 days Return to the Emergency Department if your symptoms worsen or persist or have other concerning symptoms. - Post Discharge Activity
[2019-12-16 18:22] VITALS: BP 142/75; PULSE 85; TEMP 98.1
--- NOTE | 2019-12-17 11:57 | EKG ---
Test Reason : Blood Pressure : / mmHG Vent. Rate : 078 BPM Atrial Rate : 078 BPM P-R Int : 150 ms QRS Dur : 070 ms QT Int : 396 ms P-R-T Axes : 032 046 058 degrees QTc Int : 451 ms POOR DATA QUALITY, INTERPRETATION MAY BE ADVERSELY AFFECTED NORMAL SINUS RHYTHM NORMAL ECG WHEN COMPARED WITH ECG OF 17-OCT-2019 15:08, NO SIGNIFICANT CHANGE WAS FOUND Confirmed by DALTON SANCHEZ, WANDER ([id number]) on 12/17/2019 11:57:13 AM Referred By: Confirmed By:WANDER HOFFMAN MD
== END 2019-12-16 18:15 | disposition home or self-care (01) ==
LOC: JER 13:37
PROC: 3E033NZ Introduction of Analgesics, Hypnotics, Sedatives into Peripheral Vein, Percutaneous Approach (ICD-10-PCS; principal; 2019-12-16)
PROC: 3E033GC Introduction of Other Therapeutic Substance into Peripheral Vein, Percutaneous Approach (ICD-10-PCS; 2019-12-16)
DX: K59.00 Constipation, unspecified (principal)
CPT/HCPCS: 36415; 74019-TC-FY; 74177-TC; 80053; 83690; 85025; 85610; 85730; 86850; 86900; 86901; 93005; 93010; 99283-25; J0131; Q9967

== ENCOUNTER 2019-12-18 01:15 | Emergency (ER) | payer OTHER ==
[2019-12-18 02:18] VITALS: TEMP 98.3; BMI 20.2
[2019-12-18] MEDS ORDERED: ONDANSETRON 4 MG/2 ML VIAL IVPUSH ONE (03:32)
[2019-12-18] MEDS ORDERED: SODIUM CHLORIDE 0.9% 500 ML INFUS.BAG IV ONE (03:32)
[2019-12-18] MEDS ORDERED: ONDANSETRON 4 MG/2 ML VIAL ONE (03:39)
[2019-12-18 04:13] LABS: BASO % 0.7 % (0-2.0); EOS % 0.3 % (0-4.5); HEMATOCRIT 46.5 % (35.4-49); HEMOGLOBIN 15.2 GM/dL (11.7-16.9); LYMPH % 20.5 % (8-40); MCH 26.9 pg (25.7-33.7); MCHC 32.8 g/dl (32.0-35.9); MEAN CELL VOLUME 81.9 fl (80-96); MEAN PLT VOLUME 9.8 fl (7.5-11.1); MONO % 9.4 % (3.8-10.2); NEUT % 69.1 % (42.8-82.8); PLATELET COUNT 276 K/MM3 (134-434); RBC 5.67 M/mm3 (4.00-5.60); RDW 16.5 % (11.9-15.9); WHITE BLOOD COUNT 13.1 K/mm3 (4.0-10.0)
--- NOTE | 2019-12-18 04:13 | PDOC ---
History of Present Illness - General Chief Complaint: Pain Stated Complaint: ABDOMINAL PAIN,VOMITING - History of Present Illness Initial Comments: Cheryl Lovett is a 64yo man with a PMH of frequent heartburn, HLD, current smoking, frequent constipation who presents to the ED reporting upper abdominal burning, vomiting, and abdominal pain. He was seen yesterday for similar symptoms and diagnosed with constipation following CT abd/pelvis and labs. He reports that he took the magnesium citrate prescribed, used the enema provided in the ED, and also took milk of mag he bought at the store. Mr Lovett additionally called his GI doctor, Dr Walls, and was prescribed Linzess for chronic constipation. However, he states that there has been no improvement in his symptoms. He has continued pain and has vomited several times today. He reports that he has been seen in the hospital several times with constipation, and he always feels better after "the medicine in the IV." Mr Lovett says that he does not take any stool softeners or laxatives on a regular basis. He saw GI once but has not followed up. He reports that he usually has 3 very small bowel movements per day after pushing/straining for a long time, and his stool is very firm and dry. He denies any rectal bleeding, hematemesis, fever/chills, loss of urination, or other change in symptoms since he was seen previously. Past History - Past Medical History Allergies/Adverse Reactions: Allergies Allergy/AdvReac Type Severity Reaction Status Date / Time No Known Allergies Allergy Verified 12/18/19 02:01 Home Medications: Ambulatory Orders Penicillin V Potassium [Pen Vee K -] 250 mg PO QID #40 tablet 05/15/19 Magnesium Citrate [Citroma -] 195 ml PO ONCE #1 bottle 12/16/19 Famotidine [Pepcid] 20 mg PO DAILY #30 tablet 12/18/19 Polyethylene Glycol 3350 [Miralax (For Bowel Prep) -] 17 gm PO DAILY #1 bottle 12/18/19 COPD: No HTN: Yes - Psycho Social/Smoking Cessation Hx Smoking History: Never smoked Have you smoked in the past 12 months: Yes Number of Cigarettes Smoked Daily: 25 'Breaking Loose' booklet given: 01/06/18 Hx Alcohol Use: No Drug/Substance Use Hx: No Substance Use Type: None Review of Systems - Review of Systems Comments:: General: No fevers, no chills, no weight or appetite change, no malaise HEENT: No changes in vision, no changes in hearing, no congestion, no sore throat CV: No chest pain, no palpitations, no LE edema Pulm: No SOB, no cough, no wheezing GI: No nausea or vomiting, no change in bowel habits, no melena : See HPI Musc: No back pain, no joint swelling, no recent injury Skin: No rash, no lesions, no erythema Endo: No excessive thirst, no heat/cold intolerance Heme: No unusual bruising or bleeding, no swollen glands Neuro: No syncope, no numbness/tingling, no focal weakness Vasc: No claudication Psych: No recent change in mood, no SI or HI *Physical Exam - Vital Signs Last Vital Signs Temp Pulse Resp BP Pulse Ox 98.3 F 92 H 18 144/96 97 12/18/19 01:20 12/18/19 01:20 12/18/19 01:20 12/18/19 01:20 12/18/19 01:20 - Physical Exam General: Uncomfortable but in no acute distress HEENT: Atraumatic, PERRL, EOMI, MMM, voice normal Cards: RRR, no murmur appreciated Pulm: Comfortable on room air, clear to auscultation bilaterally Abd: Soft, nondistended. Epigastric TTP. No rigidity or involuntary guarding Ext: Atraumatic. No LE edema. ROM intact. WWP Skin: Normal color, no rashes or lesions Neuro: A&Ox3, CN grossly intact, normal speech, motor/sensory grossly intact and symmetric Psych: Upset ED Treatment Course - LABORATORY CBC & Chemistry Diagram: 12/18/19 04:00 12/18/19 04:00 - Medications Given in the ED: ED Medications Discontinued Medications Generic Name Dose Route Start Last Admin Trade Name Freq PRN Reason Stop Dose Admin Ondansetron HCl 4 mg 12/18/19 03:32 12/18/19 04:04 Zofran Injection IVPUSH 12/18/19 03:33 4 mg ONCE ONE Administration Sodium Chloride 1,000 ml 12/18/19 03:32 12/18/19 04:04 Normal Saline - IV 12/18/19 03:33 1,000 ml ONCE ONE Administration Medical Decision Making - Medical Decision Making 12/18/19 04:13 Cheryl Lovett is a 64yo man with a PMH of frequent heartburn, HLD, current smoking, chronic constipation with several ED visits who presents to the ED reporting upper abdominal burning, vomiting, and abdominal pain. He was seen yesterday for similar symptoms and diagnosed with constipation following CT abd/ pelvis and labs. He reports having taken mag citrate, milk of mag, a Fleets enema, and started Linzess since his recent visit. - Reviewed labs, CT from one day ago. Mr Villarreal was noted to have a large stool burden but no other abnormalities - No vomiting while in the ED - Abd pain most likely secondary to known constipation - Repeat labs given report of vomiting to evaluate for electrolyte abnormalities - Pt has GI follow up, sees Dr Walls and spoke with him earlier today - IVF, zofran for symptoms - Reassess 12/18/19 05:07 - Pt now states that he has actually been having diarrhea for the past day after taking magnesium citrate (prescribed), milk of magnesia (OTC), using an enema, and starting Linzess. - Reports now that he feels heartburn - Lengthy conversation regarding using a daily bowel regimen at home, follow up with PMD, follow up with GI. Pt's son states understanding, will help his father adhere to bowel regimen. Will call Dr Walls to schedule follow up - Plan to d/c home with prescriptions for famotidine, miralax Discussed with Dr Adán Betancur PGY2 Discharge - Discharge Information Problems reviewed: Yes Clinical Impression/Diagnosis: Constipated Qualifiers: Constipation type: other constipation type Qualified Code(s): K59.09 - Other constipation Nausea & vomiting Qualifiers: Vomiting type: unspecified Vomiting Intractability: non-intractable Qualified Code(s): R11.2 - Nausea with vomiting, unspecified Condition: Stable Disposition: HOME - Admission No - Additional Discharge Information Prescriptions: Famotidine [Pepcid] 20 mg PO DAILY #30 tablet Polyethylene Glycol 3350 [Miralax (For Bowel Prep) -] 17 gm PO DAILY #1 bottle - Follow up/Referral Referrals: Noelle Phipps MD [Primary Care Provider] - Rogelio Walls MD [Staff Physician] - - Patient Discharge Instructions Patient Printed Discharge Instructions: DI for Constipation Additional Instructions: Discharge Instructions: You were seen in the emergency department for abdominal pain, constipation/ diarrhea, and continued vomiting. Your symptoms are likely due to chronic constipation but should imrpove now that you are having bowel movement.s Home Care: - You have been prescribed an acid medication, famotidine. This should be taken daily - You have been prescribed a stool softener called Miralax. This should be taken twice daily until you are having a regular, soft bowel movement every day. Then take one time daily. Mix the powder into a full glass of water - If you still do not have a soft bowel movement every day, you may add Metamucil daily. This is available at the store. - Follow up with your regular doctor and your GI doctor (Dr Walls) within the next week. - Seek immediate medical care for worsening symptoms, inability to eat, bloody vomit, severe pain, or any other medical emergency. - Post Discharge Activity
[2019-12-18 04:33] LABS: MAGNESIUM 2.6 mg/dL (1.8-2.4)
[2019-12-18] MEDS ORDERED: SODIUM PHOSPHATE/NA BIPHOS 133 ML ENEMA PR ONE (04:48)
[2019-12-18] MEDS ORDERED: MAG HYDROX/AL HYDROX/SIMETH -MYLANTA- ORAL SUSPENSION PO ONE (05:09)
[2019-12-18] MEDS ORDERED: FAMOTIDINE 20 MG/50 ML IVPB 20 MG/50 ML MG IVPB ONE ×2 (05:09→05:30)
[2019-12-18 05:15] LABS: ALK PHOS 109 U/L (45-117); ANION GAP 10 MMOL/L (8-16); BLOOD UREA NITROGEN 23.5 mg/dL (7-18); CALCIUM 10.2 mg/dL (8.5-10.1); CHLORIDE 100 mmol/L (98-107); CO2 29 mmol/L (21-32); CREATININE 1.5 mg/dL (0.55-1.3); GLUCOSE,RANDOM 104 mg/dL (74-106); LIPASE 142 U/L (73-393); MAGNESIUM 2.7 mg/dL (1.8-2.4); POTASSIUM 4.8 mmol/L (3.5-5.1); SGOT/AST 39 U/L (15-37); SGPT/ALT 29 U/L (13-61); SODIUM 139 mmol/L (136-145); TOT PROT 8.6 g/dl (6.4-8.2)
[2019-12-18] MEDS ORDERED: MAG HYDROX/AL HYDROX/SIMETH 30 ML UNIT-DOSE CUP ONE (05:30)
--- NOTE | 2019-12-18 05:37 | PDOC ---
Attending Attestation - Resident Resident Name: GypsyNuha - ED Attending Attestation I have performed the following: I have examined & evaluated the patient, The case was reviewed & discussed with the resident, I agree w/resident's findings & plan, Exceptions are as noted - HPI HPI: 12/18/19 05:35 See resident HPI - Physicial Exam PE: 12/18/19 05:35 Agree with documented exam - Medical Decision Making 12/18/19 05:35 64m with abd px and diarrhea, was seen on 12/16/19 for abd pain and found to have constipation, was dc'ed with enema and instructions to take MgCitrate if enema did not relief issue. Pt took several doses of MgCitrate and is now having loose stools
[2019-12-18 06:19] VITALS: BP 135/89; PULSE 86
== END 2019-12-18 06:10 | disposition home or self-care (01) ==
LOC: JER 01:15
PROC: 3E033GC Introduction of Other Therapeutic Substance into Peripheral Vein, Percutaneous Approach (ICD-10-PCS; principal; 2019-12-18)
DX: K59.09 Other constipation (principal); R11.2 Nausea with vomiting, unspecified; Z87.891 Personal history of nicotine dependence; I10 Essential (primary) hypertension
CPT/HCPCS: 36415; 80053; 82550; 82553; 83690; 83735; 84484; 85025; 96365; 96375; 99283-25

== ENCOUNTER 2021-03-23 13:47 | Emergency (ER) | payer OTHER ==
[2021-03-23 14:42] VITALS: BMI 21.3
[2021-03-23] MEDS ORDERED: FAMOTIDINE 20 MG/50 ML IVPB 20 MG/50 ML MG IVPB ONE ×2 (15:14→15:48)
[2021-03-23] MEDS ORDERED: SODIUM CHLORIDE 1,000 ML IV STA (15:14)
[2021-03-23 16:12] LABS: BASO % 0.8 % (0-2.0); EOS % 1.7 % (0-4.5); HEMOGLOBIN 14.9 GM/dL (11.7-16.9); LYMPH % 28.9 % (8-40); MCH 26.2 pg (25.7-33.7); MCHC 32.5 g/dl (32.0-35.9); MEAN CELL VOLUME 80.6 fl (80-96); MEAN PLT VOLUME 10.2 fl (7.5-11.1); MONO % 5.7 % (3.8-10.2); NEUT % 62.9 % (42.8-82.8); PLATELET COUNT 243 K/MM3 (134-434); RDW 15.5 % (11.9-15.9); WHITE BLOOD COUNT 9.2 K/mm3 (4.0-10.0)
[2021-03-23 16:19] LABS: INR 1.22 (0.83-1.09); PROTHROMBIN TIME (PATIENT) 14.9 SEC (9.7-13.0)
[2021-03-23 16:20] LABS: ALBUMIN 3.6 g/dl (3.4-5.0); CALCIUM 9.8 mg/dL (8.5-10.1); CO2 25 mmol/L (21-32); GLUCOSE,RANDOM 102 mg/dL (74-106)
[2021-03-23 16:21] LABS: BLOOD UREA NITROGEN 18.7 mg/dL (7-18); LIPASE 176 U/L (73-393)
[2021-03-23 16:22] LABS: ACTIVATED PTT 30.7 SECONDS (25.2-36.5)
[2021-03-23 16:23] LABS: CREATININE 1.3 mg/dL (0.55-1.3); SGOT/AST 19 U/L (15-37); SGPT/ALT 19 U/L (13-61)
[2021-03-23 16:25] LABS: BILIRUBIN,TOTAL 0.6 mg/dL (0.2-1)
[2021-03-23 16:26] LABS: ALK PHOS 109 U/L (45-117)
[2021-03-23 16:28] LABS: SODIUM 136 mmol/L (136-145)
[2021-03-23 16:47] LABS: ANION GAP 8 MMOL/L (8-16); CHLORIDE 103 mmol/L (98-107)
[2021-03-23 16:48] VITALS: PULSE 74
[2021-03-23 19:13] VITALS: BP 135/86; TEMP 98.2
== END 2021-03-23 19:14 | disposition home or self-care (01) ==
LOC: JER 13:47
PROC: 3E033NZ Introduction of Analgesics, Hypnotics, Sedatives into Peripheral Vein, Percutaneous Approach (ICD-10-PCS; principal; 2021-03-23)
PROC: 3E0337Z Introduction of Electrolytic and Water Balance Substance into Peripheral Vein, Percutaneous Approach (ICD-10-PCS; 2021-03-23)
DX: K57.90 Diverticulosis of intestine, part unspecified, without perforation or abscess without bleeding (principal)
CPT/HCPCS: 36415; 71046-TC-FY; 74177-TC; 80053; 82272; 82550; 83690; 84484; 85025; 85610; 85730; 86850; 86900; 86901; 93005; 93010; 99285-25; C9803; Q9967; U0003; U0005

== ENCOUNTER 2021-12-22 10:35 | Emergency (ER) | payer OTHER ==
[2021-12-22 11:07] VITALS: BP 145/84; PULSE 112; TEMP 99.3; BMI 21.3
[2021-12-22] MEDS ORDERED: SODIUM CHLORIDE 0.9% 500 ML INFUS.BAG IV ONE (11:38)
[2021-12-22] MEDS ORDERED: ONDANSETRON 4 MG/2 ML VIAL IVPUSH ONE (11:38)
[2021-12-22] MEDS ORDERED: ACETAMINOPHEN 1000 MG/100 ML BAG IVPB ONE (11:38)
[2021-12-22] MEDS ORDERED: ONDANSETRON 4 MG/2 ML VIAL ONE (11:53)
[2021-12-22] MEDS ORDERED: ACETAMINOPHEN INJECTION 100 ML IVPB ONE (11:53)
[2021-12-22 12:53] LABS: BASO % 0.9 % (0-2.0); EOS % 0.1 % (0-4.5); HEMATOCRIT 39.7 % (35.4-49); HEMOGLOBIN 12.7 GM/dL (11.7-16.9); LYMPH % 15.9 % (8-40); MCH 25.4 pg (25.7-33.7); MCHC 31.9 g/dl (32.0-35.9); MEAN CELL VOLUME 79.6 fl (80-96); MEAN PLT VOLUME 9.6 fl (7.5-11.1); MONO % 5.7 % (3.8-10.2); NEUT % 77.4 % (42.8-82.8); PLATELET COUNT 297 10^3/uL (134-434); RBC 4.99 M/mm3 (4.00-5.60); RDW 15.3 % (11.9-15.9); WHITE BLOOD COUNT 6.9 K/mm3 (4.0-10.0)
[2021-12-22 13:12] LABS: CALCIUM 9.5 mg/dL (8.5-10.1)
[2021-12-22 13:13] LABS: ALBUMIN 3.5 g/dl (3.4-5.0); BLOOD UREA NITROGEN 13.4 mg/dL (7-18)
[2021-12-22 13:16] LABS: CREATININE 1.1 mg/dL (0.55-1.3)
[2021-12-22 13:18] LABS: BILIRUBIN,TOTAL 0.5 mg/dL (0.2-1); TOT PROT 7.9 g/dl (6.4-8.2)
== END 2021-12-22 14:20 | disposition home or self-care (01) ==
LOC: JER 10:35
PROC: 3E033NZ Introduction of Analgesics, Hypnotics, Sedatives into Peripheral Vein, Percutaneous Approach (ICD-10-PCS; principal; 2021-12-22)
PROC: 3E033GC Introduction of Other Therapeutic Substance into Peripheral Vein, Percutaneous Approach (ICD-10-PCS; 2021-12-22)
DX: M79.10 Myalgia, unspecified site (principal)
CPT/HCPCS: 36415; 80053; 85025; 96374; 96375; 99284-25

== ENCOUNTER 2022-08-29 01:34 | Emergency (ER) | payer OTHER ==
[2022-08-29 01:56] VITALS: BP 160/87; PULSE 73; RESP 20; TEMP 98; BMI 20.9
[2022-08-29] MEDS ORDERED: SODIUM CHLORIDE 0.9% 500 ML INFUS.BAG IV ONE (02:22)
[2022-08-29] MEDS ORDERED: ACETAMINOPHEN 1000 MG/100 ML BAG IVPB ONE (02:22)
[2022-08-29] MEDS ORDERED: ONDANSETRON 4 MG/2 ML VIAL IVPUSH ONE (02:22)
[2022-08-29] MEDS ORDERED: ACETAMINOPHEN INJECTION 100 ML IVPB ONE (02:38)
[2022-08-29] MEDS ORDERED: ONDANSETRON 4 MG/2 ML VIAL ONE (02:38)
[2022-08-29 02:58] LABS: BASO % 1.3 % (0-2.0); EOS % 2.1 % (0-4.5); HEMATOCRIT 40.1 % (35.4-49); HEMOGLOBIN 13.2 GM/dL (11.7-16.9); LYMPH % 42.7 % (8-40); MCH 26.5 pg (25.7-33.7); MCHC 32.9 g/dl (32.0-35.9); MEAN CELL VOLUME 80.6 fl (80-96); MEAN PLT VOLUME 9.8 fl (7.5-11.1); MONO % 5.2 % (3.8-10.2); NEUT % 48.7 % (42.8-82.8); PLATELET COUNT 227 10^3/uL (134-434); RBC 4.97 M/mm3 (4.00-5.60); RDW 15.9 % (11.9-15.9); WHITE BLOOD COUNT 6.7 K/mm3 (4.0-10.0)
[2022-08-29 03:16] LABS: CHLORIDE 110 mmol/L (98-107)
[2022-08-29 03:18] LABS: CALCIUM 8.8 mg/dL (8.5-10.1)
[2022-08-29 03:19] LABS: ALBUMIN 3.2 g/dl (3.4-5.0); CO2 23 mmol/L (21-32); GLUCOSE,RANDOM 93 mg/dL (74-106); LIPASE 129 U/L (73-393)
[2022-08-29 03:22] LABS: CREATININE 1.1 mg/dL (0.55-1.3); SGOT/AST 69 U/L (15-37)
[2022-08-29 03:24] LABS: BILIRUBIN,TOTAL 0.5 mg/dL (0.2-1)
[2022-08-29 03:25] LABS: ALK PHOS 86 U/L (45-117)
[2022-08-29 03:38] LABS: ANION GAP 3 MMOL/L (8-16); SGPT/ALT 20 U/L (13-61); SODIUM 136 mmol/L (136-145)
[2022-08-29 05:11] LABS: CALCIUM 8.6 mg/dL (8.5-10.1)
[2022-08-29 05:12] LABS: MAGNESIUM 1.9 mg/dL (1.8-2.4)
[2022-08-29] MEDS ORDERED: FAMOTIDINE 20 MG TABLET PO ONE (06:06)
[2022-08-29] MEDS ORDERED: MAG HYDROX/AL HYDROX/SIMETH -MYLANTA- ORAL SUSPENSION PO ONE (06:06)
[2022-08-29] MEDS ORDERED: MAG HYDROX/AL HYDROX/SIMETH 30 ML UNIT-DOSE CUP ONE (06:13)
[2022-08-29] MEDS ORDERED: FAMOTIDINE 20 MG TABLET ONE (06:13)
== END 2022-08-29 06:18 | disposition home or self-care (01) ==
LOC: JER 01:34
PROC: 3E0333Z Introduction of Anti-inflammatory into Peripheral Vein, Percutaneous Approach (ICD-10-PCS; principal; 2022-08-29)
PROC: 3E033GC Introduction of Other Therapeutic Substance into Peripheral Vein, Percutaneous Approach (ICD-10-PCS; 2022-08-29)
DX: M43.16 Spondylolisthesis, lumbar region (principal); K29.70 Gastritis, unspecified, without bleeding
CPT/HCPCS: 0241U-QW; 36415; 73630-TC-LT; 74177-TC; 80048; 80053; 83690; 83735; 84484; 85025; 93005; 93010; 99285-25; Q9967

== ENCOUNTER 2023-04-05 18:21 | Emergency (ER) | payer OTHER ==
[2023-04-05 18:27] VITALS: BP 132/75; PULSE 73; RESP 18; TEMP 98; BMI 20.9
[2023-04-05] MEDS ORDERED: FAMOTIDINE 20 MG/50 ML IVPB 20 MG/50 ML MG IVPB ONE ×2 (20:10→20:40)
[2023-04-05] MEDS ORDERED: SODIUM CHLORIDE 0.9% 500 ML INFUS.BAG IV ONE (20:10)
[2023-04-05] MEDS ORDERED: MAG HYDROX/AL HYDROX/SIMETH -MYLANTA- ORAL SUSPENSION PO ONE (20:10)
[2023-04-05] MEDS ORDERED: MAG HYDROX/AL HYDROX/SIMETH 30 ML UNIT-DOSE CUP ONE (20:40)
[2023-04-05 21:19] LABS: BASO % 0.7 % (0-2.0); EOS % 3.9 % (0-4.5); HEMATOCRIT 39.2 % (35.4-49); LYMPH % 34.9 % (8-40); MCH 26.2 pg (25.7-33.7); MCHC 33.2 g/dl (32.0-35.9); MEAN CELL VOLUME 78.9 fl (80-96); MEAN PLT VOLUME 9.1 fl (7.5-11.1); MONO % 6.2 % (3.8-10.2); NEUT % 54.3 % (42.8-82.8); PLATELET COUNT 268 10^3/uL (134-434); RBC 4.97 M/mm3 (4.00-5.60); RDW 15.7 % (11.9-15.9); WHITE BLOOD COUNT 8.3 K/mm3 (4.0-10.0)
[2023-04-05 21:37] LABS: POTASSIUM 3.9 mmol/L (3.5-5.1)
[2023-04-05 21:40] LABS: ALBUMIN 3.3 g/dl (3.4-5.0); BLOOD UREA NITROGEN 15.3 mg/dL (7-18); CALCIUM 9.2 mg/dL (8.5-10.1)
[2023-04-05 21:43] LABS: CREATININE 1.3 mg/dL (0.55-1.3)
[2023-04-05 21:45] LABS: BILIRUBIN,TOTAL 0.6 mg/dL (0.2-1); TOT PROT 7.8 g/dl (6.4-8.2)
== END 2023-04-06 00:54 | disposition home or self-care (01) ==
LOC: JER 18:21
PROC: 3E033GC Introduction of Other Therapeutic Substance into Peripheral Vein, Percutaneous Approach (ICD-10-PCS; principal; 2023-04-05)
DX: R10.13 Epigastric pain (principal); R11.2 Nausea with vomiting, unspecified; R00.2 Palpitations; R42 Dizziness and giddiness; J43.9 Emphysema, unspecified; K29.70 Gastritis, unspecified, without bleeding
CPT/HCPCS: 36415; 71260-TC; 74177-TC; 80053; 83690; 84484; 85025; 93005; 93010; 99285-25; Q9967

== ENCOUNTER 2023-04-12 21:56 | Emergency (ER) | payer OTHER ==
[2023-04-12 22:05] VITALS: BP 139/85; PULSE 88; RESP 18; TEMP 98.1; BMI 21.3
[2023-04-12] MEDS ORDERED: FOLIC ACID INJECTION - 1 MG, THIAMINE HCL 100 MG, MULTIVIT INJECTION ADULT 10 ML in SOD... IVPB ONE (22:39)
== END 2023-04-13 01:37 | disposition home or self-care (01) ==
LOC: JER 21:56
PROC: 3E033GC Introduction of Other Therapeutic Substance into Peripheral Vein, Percutaneous Approach (ICD-10-PCS; principal; 2023-04-12)
PROC: 3E033GC Introduction of Other Therapeutic Substance into Peripheral Vein, Percutaneous Approach (ICD-10-PCS; 2023-04-12)
PROC: 3E033GC Introduction of Other Therapeutic Substance into Peripheral Vein, Percutaneous Approach (ICD-10-PCS; 2023-04-12)
PROC: 3E033GC Introduction of Other Therapeutic Substance into Peripheral Vein, Percutaneous Approach (ICD-10-PCS; 2023-04-12)
PROC: 3E033GC Introduction of Other Therapeutic Substance into Peripheral Vein, Percutaneous Approach (ICD-10-PCS; 2023-04-12)
PROC: 3E033GC Introduction of Other Therapeutic Substance into Peripheral Vein, Percutaneous Approach (ICD-10-PCS; 2023-04-12)
PROC: 3E033GC Introduction of Other Therapeutic Substance into Peripheral Vein, Percutaneous Approach (ICD-10-PCS; 2023-04-12)
PROC: 3E033GC Introduction of Other Therapeutic Substance into Peripheral Vein, Percutaneous Approach (ICD-10-PCS; 2023-04-12)
DX: R11.10 Vomiting, unspecified (principal); R10.9 Unspecified abdominal pain; R63.0 Anorexia
CPT/HCPCS: 99284-25

== ENCOUNTER 2024-01-20 20:36 | Emergency (ER) | payer OTHER ==
[2024-01-20 20:45] VITALS: BMI 21.3
[2024-01-20 21:19] LABS: EOS % 1.2 % (0-4.5); HEMATOCRIT 43.6 % (35.4-49); HEMOGLOBIN 14.7 GM/dL (11.7-16.9); LYMPH % 37.1 % (8-40); MCH 26.7 pg (25.7-33.7); MCHC 33.6 g/dl (32.0-35.9); MEAN CELL VOLUME 79.4 fl (80-96); MEAN PLT VOLUME 9.1 fl (7.5-11.1); NEUT % 53.7 % (42.8-82.8); PLATELET COUNT 259 10^3/uL (134-434); RBC 5.49 M/mm3 (4.00-5.60); RDW 15.3 % (11.9-15.9); WHITE BLOOD COUNT 8.9 K/mm3 (4.0-10.0)
[2024-01-20] MEDS ORDERED: ACETAMINOPHEN INJECTION 100 ML IVPB ONE (21:28)
[2024-01-20] MEDS ORDERED: ONDANSETRON 4 MG/2 ML VIAL ONE (21:29)
[2024-01-20] MEDS ORDERED: FAMOTIDINE 20 MG/50 ML IVPB 20 MG/50 ML MG IVPB ONE (21:29)
[2024-01-20 21:34] LABS: INR 1.16 (0.83-1.09); PROTHROMBIN TIME (PATIENT) 13.4 SEC (9.7-13.0)
[2024-01-20 21:37] LABS: ACTIVATED PTT 29.2 SECONDS (25.2-36.5)
[2024-01-20] MEDS: SODIUM CHLORIDE 1,000 ML IV STA (21:39)
[2024-01-20] MEDS: ONDANSETRON 4 MG/2 ML VIAL IVPUSH ONE (21:39)
[2024-01-20] MEDS: FAMOTIDINE 20 MG/50 ML IVPB 20 MG/50 ML MG IVPB ONE (21:39)
[2024-01-20] MEDS: ACETAMINOPHEN 1000 MG/100 ML BAG IVPB ONE (21:39)
[2024-01-20 21:46] LABS: POTASSIUM 4.1 mmol/L (3.5-5.1)
[2024-01-20 21:48] LABS: ALBUMIN 3.5 g/dl (3.4-5.0); CALCIUM 9.5 mg/dL (8.5-10.1)
[2024-01-20 21:49] LABS: BLOOD UREA NITROGEN 14.2 mg/dL (7-18); MAGNESIUM 1.9 mg/dL (1.8-2.4)
[2024-01-20 21:51] LABS: CREATININE 1.3 mg/dL (0.55-1.3)
[2024-01-20 21:52] LABS: PHOSPHOROUS 2.8 mg/dL (2.5-4.9)
[2024-01-20 21:53] LABS: BILIRUBIN,TOTAL 0.6 mg/dL (0.2-1); TOT PROT 8.3 g/dl (6.4-8.2)
[2024-01-21 00:48] VITALS: BP 153/76; PULSE 85; RESP 19; TEMP 97.6
== END 2024-01-21 00:49 | disposition home or self-care (01) ==
LOC: JER 20:36
PROC: 3E033GC Introduction of Other Therapeutic Substance into Peripheral Vein, Percutaneous Approach (ICD-10-PCS; principal; 2024-01-20)
PROC: 3E033GC Introduction of Other Therapeutic Substance into Peripheral Vein, Percutaneous Approach (ICD-10-PCS; 2024-01-20)
PROC: 3E033NZ Introduction of Analgesics, Hypnotics, Sedatives into Peripheral Vein, Percutaneous Approach (ICD-10-PCS; 2024-01-20)
DX: R11.10 Vomiting, unspecified (principal); R10.13 Epigastric pain
CPT/HCPCS: 36415; 71046-TC-FY; 74177-TC; 80053; 83605; 83690; 83735; 84100; 84484; 85025; 85610; 85730; 86850; 86900; 86901; 93005; 93010; 96365; 96375; 99285-25; J0131; Q9967

== ENCOUNTER 2024-03-23 23:29 | Inpatient (IN) | payer OTHER ==
[2024-03-24] MEDS ORDERED: ONDANSETRON 4 MG/2 ML VIAL ONE (00:12)
[2024-03-24] MEDS ORDERED: PANTOPRAZOLE SODIUM 40 MG VIAL ONE ×2 (00:13→08:52)
[2024-03-24 00:31] LABS: BASO % 0.3 % (0-2.0); EOS % 0.1 % (0-4.5); HEMATOCRIT 43.2 % (35.4-49); LYMPH % 13.1 % (8-40); MCH 25.6 pg (25.7-33.7); MCHC 32.4 g/dl (32.0-35.9); MEAN PLT VOLUME 9.1 fl (7.5-11.1); MONO % 5.5 % (3.8-10.2); PLATELET COUNT 256 10^3/uL (134-434); RBC 5.47 M/mm3 (4.00-5.60); RDW 15.5 % (11.9-15.9); WHITE BLOOD COUNT 12.8 K/mm3 (4.0-10.0)
[2024-03-24] MEDS: SODIUM CHLORIDE 0.9% 500 ML INFUS.BAG IV ONE ×2 (00:31→07:25)
[2024-03-24] MEDS: PANTOPRAZOLE SODIUM 40 MG VIAL IVPUSH ONE (00:31)
[2024-03-24] MEDS: ONDANSETRON 4 MG/2 ML VIAL IVPUSH ONE (00:31)
[2024-03-24 00:37] LABS: INR 1.1 (0.83-1.09); PROTHROMBIN TIME (PATIENT) 12.8 SEC (9.7-13.0)
[2024-03-24 00:39] LABS: ACTIVATED PTT 28.1 SECONDS (25.2-36.5); EPI CELLS 3 /uL (0-25.1); HYALINE CASTS 1 /uL (0-3.1); URINE APPEARANCE CLEAR; URINE BACTERIA 0 /uL (0-1359); URINE BILIRUBIN NEGATIVE (NEGATIVE); URINE COLOR YELLOW; URINE GLUCOSE (UA) NEGATIVE (NEGATIVE); URINE KETONE NEGATIVE (NEGATIVE); URINE LEUK ESTERASE NEGATIVE (NEGATIVE); URINE NITRITE NEGATIVE (NEGATIVE); URINE PROTEIN 3+ (NEGATIVE); URINE RBC 36 /uL (0-23.9); URINE UROBILINOGEN 0.2 mg/dL (0.2-1.0); URINE WBC 4 /uL (0-25.8)
[2024-03-24 00:54] LABS: POTASSIUM 4.1 mmol/L (3.5-5.1)
[2024-03-24 00:56] LABS: CALCIUM 8.6 mg/dL (8.5-10.1)
[2024-03-24 00:57] LABS: ALBUMIN 3.3 g/dl (3.4-5.0)
[2024-03-24 00:59] LABS: CREATININE 1.2 mg/dL (0.55-1.3)
[2024-03-24 01:01] LABS: BILIRUBIN,TOTAL 0.5 mg/dL (0.2-1); TOT PROT 7.9 g/dl (6.4-8.2)
[2024-03-24] MEDS ORDERED: CEFTRIAXONE 1 GM/50 ML BAG ONE (03:29)
[2024-03-24] MEDS ORDERED: AZITHROMYCIN IVPB 500 MG/250 ML BAG IVPB ONE (03:29)
[2024-03-24] MEDS: CEFTRIAXONE 1,000 MG in DEXTROSE 5%-WATER - 50 ML IVPB ONE (03:43)
[2024-03-24] MEDS: AZITHROMYCIN IVPB 500 MG in DEXTROSE 5%-WATER - 250 ML IVPB ONE (03:44)
[2024-03-24] MEDS ORDERED: METOCLOPRAMIDE HCL INJECTION 10 MG/2 ML VIAL ONE (04:14)
[2024-03-24] MEDS: SODIUM CHLORIDE 0.9% 1000 ML INFUS.BAG IV ONE (04:21)
[2024-03-24] MEDS: METOCLOPRAMIDE HCL INJECTION 10 MG/2 ML VIAL IVPB ONE (04:21)
[2024-03-24] MEDS: DEXTROSE 5%-0.45% SALINE 1,000 ML IV SCH ×2 (06:20→20:12)
[2024-03-24 09:10] LABS: BASO % 0.5 % (0-2.0); EOS % 0.6 % (0-4.5); HEMATOCRIT 39.7 % (35.4-49); HEMOGLOBIN 12.8 GM/dL (11.7-16.9); LYMPH % 22.2 % (8-40); MCH 25.3 pg (25.7-33.7); MCHC 32.4 g/dl (32.0-35.9); MEAN CELL VOLUME 78.3 fl (80-96); MEAN PLT VOLUME 9.3 fl (7.5-11.1); MONO % 7.4 % (3.8-10.2); NEUT % 69.3 % (42.8-82.8); PLATELET COUNT 240 10^3/uL (134-434); RBC 5.07 M/mm3 (4.00-5.60); RDW 15.2 % (11.9-15.9); WHITE BLOOD COUNT 11.1 K/mm3 (4.0-10.0)
[2024-03-24] MEDS: PANTOPRAZOLE SODIUM 40 MG VIAL IVPUSH SCH (09:17)
[2024-03-24 09:35] LABS: CALCIUM 8.3 mg/dL (8.5-10.1)
[2024-03-24 09:36] LABS: BLOOD UREA NITROGEN 14.9 mg/dL (7-18)
[2024-03-24] MEDS ORDERED: morphine SULFATE 4 MG/ML VIAL ONE (13:56)
[2024-03-24] MEDS: morphine CARPU-JECT 4 MG/1 ML DISP.SYRIN IVPUSH ONE (14:06)
[2024-03-24 15:05] VITALS: BMI 24.3
[2024-03-24] MEDS ORDERED: ONDANSETRON 4 MG/2 ML VIAL IVPUSH PRN ×2 (16:53→19:34)
[2024-03-24] MEDS ORDERED: PROPOFOL 20 ML ONE ×2 (17:57→18:21)
[2024-03-24] MEDS ORDERED: MIDAZOLAM HCL 2 MG/2 ML SINGLE DOSE VIAL ONE ×2 (17:57→19:15)
[2024-03-24] MEDS ORDERED: FENTANYL CITRATE/PF 50 MCG/ML VIAL ONE (17:57)
[2024-03-24] MEDS ORDERED: LIDOCAINE HCL/PF 2% SDV 5ML VIAL ONE (18:03)
[2024-03-24] MEDS ORDERED: ceFAZolin SODIUM 1 GM VIAL ONE (18:03)
[2024-03-24] MEDS: ceFAZolin SODIUM 1 GM VIAL IVPB ONE (18:10)
[2024-03-24] MEDS ORDERED: GENTAMICIN SO4 80 MG/2 ML VIAL ONE (18:10)
[2024-03-24] MEDS: GENTAMICIN SO4 80 MG/2 ML VIAL IVPB ONE (18:13)
[2024-03-24] MEDS ORDERED: ACETAMINOPHEN INJECTION 100 ML IVPB ONE (18:15)
[2024-03-24] MEDS ORDERED: KETOROLAC TROMETHAMINE 30 MG/1 ML VIAL ONE (18:36)
[2024-03-24] MEDS: PIPERACILLIN/TAZOB 3.375 GM 3.375 GM in DEXTROSE 5%-WATER - 50 ML IVPB SCH (20:36)
[2024-03-24] MEDS: LACTATED RINGERS SOLUTION 1,000 ML IV SCH (20:36)
[2024-03-24] MEDS: morphine SULFATE 4 MG/ML VIAL IVPUSH PRN (23:29)
[2024-03-25] MEDS: PIPERACILLIN/TAZOB 3.375 GM 3.375 GM in DEXTROSE 5%-WATER - 50 ML IVPB SCH ×2 (02:45→13:31)
[2024-03-25] MEDS ORDERED: methylPREDNISolone NA SUCC 125 MG/2 ML VIAL ONE (03:44)
[2024-03-25] MEDS: methylPREDNISolone NA SUCC 40 MG/1 ML VIAL IVPUSH ONE (04:06)
[2024-03-25 07:30] LABS: BASO % 0.1 % (0-2.0); HEMATOCRIT 38.3 % (35.4-49); HEMOGLOBIN 12.3 GM/dL (11.7-16.9); MCH 25.4 pg (25.7-33.7); MCHC 32.1 g/dl (32.0-35.9); MEAN CELL VOLUME 79.1 fl (80-96); MEAN PLT VOLUME 9.5 fl (7.5-11.1); MONO % 3.6 % (3.8-10.2); NEUT % 89.3 % (42.8-82.8); PLATELET COUNT 220 10^3/uL (134-434); RBC 4.84 M/mm3 (4.00-5.60); RDW 15.1 % (11.9-15.9); WHITE BLOOD COUNT 13.5 K/mm3 (4.0-10.0)
[2024-03-25 07:52] LABS: CALCIUM 8.7 mg/dL (8.5-10.1)
[2024-03-25 07:53] LABS: BLOOD UREA NITROGEN 14.1 mg/dL (7-18)
[2024-03-25 07:57] LABS: BILIRUBIN,TOTAL 0.6 mg/dL (0.2-1); TOT PROT 6.4 g/dl (6.4-8.2)
[2024-03-25 07:58] LABS: CREATININE 1.1 mg/dL (0.55-1.3)
[2024-03-25] MEDS ORDERED: TAMSULOSIN HCL 0.4 MG CAP PO SCH (08:30)
[2024-03-25 08:33] LABS: ALBUMIN 2.6 g/dl (3.4-5.0)
[2024-03-25] MEDS: TAMSULOSIN HCL 0.4 MG CAP PO SCH (09:28)
[2024-03-25] MEDS: PANTOPRAZOLE SODIUM 40 MG VIAL IVPUSH SCH (09:28)
[2024-03-25] MEDS: MEROPENEM 1 GM in DEXTROSE 5%-WATER 100 ML IVPB SCH (13:35)
[2024-03-26 12:35] LABS: MEAN PLT VOLUME 9.2 fl (7.5-11.1)
[2024-03-26 12:39] LABS: HEMATOCRIT 36.5 % (35.4-49); HEMOGLOBIN 11.5 GM/dL (11.7-16.9); MCH 25.3 pg (25.7-33.7); MCHC 31.6 g/dl (32.0-35.9); MEAN CELL VOLUME 79.9 fl (80-96); PLATELET COUNT 223 10^3/uL (134-434); RBC 4.56 M/mm3 (4.00-5.60); RDW 15.3 % (11.9-15.9); WHITE BLOOD COUNT 9.8 K/mm3 (4.0-10.0)
[2024-03-26] MEDS: ATORVASTATIN CA 80 MG TABLET (FP) PO SCH (21:34)
[2024-03-27] MEDS ORDERED: ACETAMINOPHEN 1000 MG/100 ML BAG IVPB PRN (13:11)
[2024-03-28 08:21] LABS: BASO % 0.5 % (0-2.0); EOS % 5.2 % (0-4.5); HEMATOCRIT 37.1 % (35.4-49); HEMOGLOBIN 11.9 GM/dL (11.7-16.9); LYMPH % 22.7 % (8-40); MCH 25.3 pg (25.7-33.7); MEAN PLT VOLUME 9.6 fl (7.5-11.1); MONO % 7.2 % (3.8-10.2); NEUT % 64.4 % (42.8-82.8); PLATELET COUNT 256 10^3/uL (134-434); RBC 4.69 M/mm3 (4.00-5.60); WHITE BLOOD COUNT 9.8 K/mm3 (4.0-10.0)
[2024-03-28 08:29] LABS: POTASSIUM 3.5 mmol/L (3.5-5.1)
[2024-03-28 08:34] LABS: ALBUMIN 2.7 g/dl (3.4-5.0); BLOOD UREA NITROGEN 17.2 mg/dL (7-18)
[2024-03-28 08:36] LABS: CREATININE 0.9 mg/dL (0.55-1.3)
[2024-03-28 08:37] LABS: BILIRUBIN,TOTAL 0.6 mg/dL (0.2-1); TOT PROT 6.6 g/dl (6.4-8.2)
[2024-03-28] MEDS: PANTOPRAZOLE 40 MG TABLET PO SCH (10:40)
[2024-03-28 17:36] VITALS: BP 151/92; PULSE 91; RESP 18; TEMP 97.9
== END 2024-03-28 18:29 | disposition home or self-care (01) | DRG 465 ==
LOC: JER 23:29 → JERBED 03-24 04:35 → J4W 03-24 14:14 → OBSVTOIN 03-25 10:03
PROVIDERS: ADMIT Internal Medicine; ATTEND Internal Medicine
PROC: 0T768DZ Dilation of Right Ureter with Intraluminal Device, Via Natural or Artificial Opening Endoscopic (ICD-10-PCS; principal; 2024-03-24 17:30)
PROC: BT1DZZZ Fluoroscopy of Right Kidney, Ureter and Bladder (ICD-10-PCS; 2024-03-24 17:30)
DX: N13.2 Hydronephrosis with renal and ureteral calculous obstruction (principal); K92.0 Hematemesis; D72.829 Elevated white blood cell count, unspecified; N40.0 Benign prostatic hyperplasia without lower urinary tract symptoms; K21.9 Gastro-esophageal reflux disease without esophagitis; E78.5 Hyperlipidemia, unspecified; R31.9 Hematuria, unspecified
CPT/HCPCS: 0241U-QW; 36415; 71045-TC-FY; 74174-TC; 76000-TC-FY; 80048; 80053; 81003; 82272; 83605; 83690; 84484; 85025; 85027; 85610; 85730; 86850; 86900; 86901; 87040; 87086; 93005; 93010; 94760; 97116-GP; 97161-GP; 99285-25; C1758; C2617; G0378; J0131

== ENCOUNTER 2024-12-06 11:02 | Emergency (ER) | payer OTHER ==
[2024-12-06 11:09] VITALS: BP 149/73; PULSE 78; RESP 18; TEMP 98.6; BMI 22.0
[2024-12-06] MEDS ORDERED: FLUCONAZOLE 150 MG TABLET PO ONE (12:00)
[2024-12-06] MEDS: FLUCONAZOLE 150 MG TABLET PO ONE (12:04)
== END 2024-12-06 12:16 | disposition home or self-care (01) ==
LOC: JER 11:02 → JERFT 11:02
DX: B37.0 Candidal stomatitis (principal)
CPT/HCPCS: 99283-25